=== PATIENT | male | born 1965 | race Hispanic/Latino ===

== ENCOUNTER 2016-05-16 10:18 | Emergency (ER) | payer SELFPAY ==
--- NOTE | 2016-05-16 15:33 | Emergency Department Report ---
ED Neck Pain/Injury HPI - General Chief Complaint: Extremity Injury, Upper Stated Complaint: PAIN DOWN LEFT SIDE NECK/ARM Time Seen by Provider: 05/16/16 15:32 Source: patient Mode of arrival: Ambulatory Limitations: No Limitations - History of Present Illness Initial Comments: Patient here complaining of that and is radiating down his left arm. He said it started about a week ago. He reports that it comes and goes but worse now. He said he has tingling down his arms to his fingertips. He said he was told that he had a fracture in his neck last year but was told that it was very minimal and will heal on its own. Patient said he took ibuprofen at home but it didn't help. Reports pain is 8 out of 10 and tingly. Denies any recent trauma. Denies any fever or chills or headache. Denies any nausea or vomiting. MD Complaint: neck pain Onset/Timin -: week(s) Place: home Radiation: left upper extremity Severity: moderate Severity scale (0 -10): 5 Quality: tingling Consistency: intermittent Improves With: immobilization Worsens With: movement of neck Context: unknown Associated Symptoms: tingling. denies: headache, fever, numbness, weakness, vertigo, difficulty walking, swollen glands, difficulty swallowing, nausea, vomiting Treatments Prior to Arrival: Ibuprofen - Related Data Previous Rx's Medication Instructions Recorded Last Taken Type hydrOXYzine HCL [Atarax] 25 - 50 mg PO Q8HR PRN #30 tablet 05/03/14 05/11/14 Rx predniSONE [Deltasone] 40 mg PO QDAY 5 Days 05/03/14 05/11/14 Rx Acetaminophen/Codeine 1 tab PO Q6H PRN #14 tab 05/11/14 Unknown Rx [Acetaminophen-Codeine #3 TAB] methylPREDNISolone [Medrol Dose 4 mg PO DAILY 6 Days 05/11/14 Unknown Rx Russ] traMADol [Ultram] 50 mg PO Q6HR PRN #20 tablet 05/16/16 Unknown Rx Allergies Allergy/AdvReac Type Severity Reaction Status Date / Time No Known Allergies Allergy Verified 05/10/14 23:59 ED Review of Systems ROS: Stated complaint: PAIN DOWN LEFT SIDE NECK/ARM Other details as noted in HPI Comment: All other systems reviewed and negative Constitutional: denies: chills, fever Eyes: denies: eye pain ENT: denies: throat pain, congestion Respiratory: no symptoms reported Cardiovascular: denies: chest pain, palpitations, edema, syncope Gastrointestinal: denies: abdominal pain, nausea, vomiting, diarrhea Musculoskeletal: arthralgia. denies: back pain Skin: denies: rash Neurological: paresthesias. denies: headache, numbness, abnormal gait, vertigo ED Past Medical Hx - Past Medical History Previous Medical History?: No Hx Hypertension: No Hx CVA: No Hx Heart Attack/AMI: No - Surgical History Past Surgical History?: Yes Hx Cholecystectomy: Yes Additional Surgical History: osteomyelitis in toes on r foot in 07/2012 - Family History Family history: no significant - Social History Smoking Status: Current Every Day Smoker Substance Use Type: None - Medications Home Medications: Home Medications Medication Instructions Recorded Confirmed Last Taken Type hydrOXYzine HCL [Atarax] 25 - 50 mg PO Q8HR PRN #30 tablet 05/03/14 05/11/1410/16 Rx predniSONE [Deltasone] 40 mg PO QDAY 5 Days 05/03/14 05/11/14 05/11/14 Rx Acetaminophen/Codeine 1 tab PO Q6H PRN #14 tab 05/11/14 Unknown Rx [Acetaminophen-Codeine #3 TAB] methylPREDNISolone [Medrol Dose 4 mg PO DAILY 6 Days 05/11/14 Unknown Rx Russ] traMADol [Ultram] 50 mg PO Q6HR PRN #20 tablet 05/16/16 Unknown Rx ED Physical Exam - General Limitations: No Limitations General appearance: alert, in no apparent distress - Head Head exam: Present: atraumatic, normocephalic, normal inspection - Eye Eye exam: Present: normal appearance, PERRL, EOMI. Absent: periorbital swelling , periorbital tenderness Pupils: Present: normal accommodation - ENT ENT exam: Present: normal exam, normal orophraynx, mucous membranes moist, TM's normal bilaterally, normal external ear exam - Neck Neck exam: Present: normal inspection, full ROM. Absent: tenderness, meningismus, lymphadenopathy - Expanded Neck Exam Expanded Neck exam: Absent: tenderness, midline deformity, anterior neck swelling, tracheal deviation - Respiratory Respiratory exam: Present: normal lung sounds bilaterally. Absent: respiratory distress, chest wall tenderness - Cardiovascular Cardiovascular Exam: Present: regular rate, normal rhythm, normal heart sounds - GI/Abdominal GI/Abdominal exam: Present: soft, normal bowel sounds. Absent: distended, tenderness, guarding, rebound, rigid - Extremities Exam Extremities exam: Present: normal inspection, full ROM, normal capillary refill. Absent: tenderness, pedal edema, joint swelling, calf tenderness - Back Exam Back exam: Present: normal inspection, full ROM. Absent: tenderness, CVA tenderness (R), CVA tenderness (L), muscle spasm, paraspinal tenderness, vertebral tenderness, rash noted - Neurological Exam Neurological exam: Present: alert, oriented X3, normal gait, reflexes normal. Absent: motor sensory deficit - Expanded Neurological Exam Expanded Neurological exam: Absent: innattentive, memory loss-remote event, memory loss- recent event, ataxia, receptive aphasia, expressive aphasia, total aphasia, tremor, protecting the airway Patient oriented to: Present: person, place, time Speech: Present: fluid speech Cranial nerves: EOM's Intact: Normal, Gag Reflex: Normal, Facial Sensation: Normal Cerebellar function: Romberg: Normal Upper motor neuron: Pronator Drift: Normal, Sensory Extinction: Normal Sensory exam: Upper Extremity Light Touch: Normal, Upper Extremity Temperature: Normal, UE 2 Point Discrimination: Normal, Lower Extremity Light Touch: Normal, Lower Extremity Temperature: Normal, LE 2 Point Discrimination: Normal Motor strength exam: RUE: 5, LUE: 5, RLE: 5, LLE: 5 DTR: bicep (R): 2+, bicep (L): 2+, tricep (R): 2+, tricep (L): 2+, knee (R): 2+ , knee (L): 2+, ankle (R): 2+, ankle (L): 2+ Best Eye Response ([place]): (4) open spontaneously Best Motor Response ([place]): (6) obeys commands Best Verbal Response ([place]): (5) oriented Peggy Total: 15 - Psychiatric Psychiatric exam: Present: normal affect, normal mood - Skin Skin exam: Present: warm, dry, intact, normal color. Absent: rash ED Course Vital Signs 05/16/16 05/16/16 05/16/16 10:47 16:01 16:31 Temperature 97.9 F Pulse Rate 84 Respiratory 16 16 16 Rate Blood Pressure 125/88 Blood Pressure [Left] O2 Sat by Pulse 100 Oximetry 05/16/16 17:23 Temperature Pulse Rate 82 Respiratory 16 Rate Blood Pressure Blood Pressure 121/80 [Left] O2 Sat by Pulse 100 Oximetry - Reevaluation(s) Reevaluation #1: 05/16/16 23:00 Patient given Toradol 30 mg IM and Decadron 10 mg IM and emergency room. He reports relief of headache 05/17/16 23:54 ED Medical Decision Making - EKG Data -: EKG Interpreted by In EKG shows normal: sinus rhythm - EKG Data Interpretation: no acute changes - Radiology Data Radiology results: report reviewed CT cervical spine revealed spondylosis without any fracture or subluxation - Medical Decision Making ED course:Pt presented to emergency room with neck pain radiating down to his left arm. Reports tingling feeling to his left arm and fingers. CT scan of C- spine revealed spondylosis and this was discussed with patient. She was given Decadron 10 mg and Toradol 30 mg IM with relief of pain. Patient discharged home with prescription for tramadol and to follow-up with orthopedic doctor if he continues to have neck pain. Critical care attestation.: If time is entered above; I have spent that time in minutes in the direct care of this critically ill patient, excluding procedure time. ED Disposition Clinical Impression: Spondylolysis of cervical region, Cervical radiculopathy Disposition: DISCHARGED TO HOME OR SELFCARE Is pt being admited?: No Does the pt Need Aspirin: No Condition: Stable Instructions: Osteoarthritis (ED), Cervical Radiculopathy (ED) Prescriptions: traMADol [Ultram] 50 mg PO Q6HR PRN #20 tablet PRN Reason: Pain Referrals: PRIMARY CARE, [Primary Care Provider] - 3-5 Days OLEG JONES MD [Staff Physician] - 3-5 Days Forms: Accompanied Note, Work/School Release Form(ED)
[2016-05-16] MEDS ORDERED: TORADOL IM ONE (15:50)
[2016-05-16] MEDS ORDERED: DECADRON IM STA (15:51)
--- NOTE | 2016-05-16 16:51 | Cat Scan Report ---
FINAL REPORT EXAM: CT CERVICAL SPINE WO CON HISTORY: neck pain with radiculopathy TECHNIQUE: CT cervical spine with reconstructions PRIORS: None. FINDINGS: Vertebral bodies demonstrate normal height and alignment. The disk spaces are within normal limits. Prominent anterior and lateral osteophytes noted at C2-C3 and C5-C6 through C7-T1 the facet joints demonstrate normal alignment. The spinous processes are intact. Craniocervical junction is unremarkable. C1 and C2 are intact. IMPRESSION: Spondylosis as noted above No acute traumatic abnormality seen.
[2016-05-16 17:24] VITALS: BP 121/80
== END 2016-05-16 17:23 | disposition home or self-care (01) ==
LOC: ED 10:18
DX: M43.02 Spondylolysis, cervical region (principal); M54.12 Radiculopathy, cervical region; F17.200 Nicotine dependence, unspecified, uncomplicated; Z90.49 Acquired absence of other specified parts of digestive tract
CPT/HCPCS: 72125; 93005; 93010; 96372; 99283; J1100; J1885

== ENCOUNTER 2016-06-24 08:04 | Emergency (ER) | payer SELFPAY ==
[2016-06-24 08:41] LABS: Eosinophils % (Auto) 4.5 % (0.0-4.3); Hematocrit 46.8 % (35.5-45.6); Hemoglobin 15.6 gm/dl (11.8-15.2); Mean Corpuscular HGB Conc 33 % (32-34); Mean Corpuscular Hemoglobin 32 pg (28-32); Mean Corpuscular Volume 95 fl (84-94); Platelet Count 243 K/mm3 (140-440); Red Blood Count 4.92 M/mm3 (3.65-5.03); Red Cell Distribution Width 13.4 % (13.2-15.2); White Blood Count 10.2 K/mm3 (4.5-11.0)
[2016-06-24 09:09] LABS: Alanine Aminotransferase 20 units/L (7-56); Albumin 3.8 g/dL (3.9-5); Albumin/Globulin Ratio 1.2 %; Alkaline Phosphatase 83 units/L (35-129); Anion Gap 17 mmol/L; BUN/Creatinine Ratio 15.71; Bilirubin,Total 0.6 mg/dL (0.1-1.2); Blood Urea Nitrogen 11 mg/dL (9-20); Calcium 8.6 mg/dL (8.4-10.2); Carbon Dioxide 23 mmol/L (22-30); Chloride 102.7 mmol/L (98-107); Glucose 186 mg/dL (75-100); Potassium 4.1 mmol/L (3.6-5.0); Sodium 139 mmol/L (137-145)
[2016-06-24 09:14] LABS: Bilirubin,Direct < 0.2 mg/dL (0-0.2)
[2016-06-24 10:39] LABS: Lipase 23 units/L (13-60)
[2016-06-24 11:26] LABS: Bilirubin,Urine NEG (Negative); Blood,Urine SM (Negative); Ketones,Urine NEG (Negative); Leukocyte Esterase,Urine NEG (Negative); Mucus,Urine FEW /HPF; Nitrite,Urine NEG (Negative); Protein,Urine <15 mg/dL mg/dL (Negative); Urobilinogen,Urine < 2.0 mg/dL (<2.0); WBC,Urine < 1.0 /HPF (0.0-6.0)
[2016-06-24] MEDS ORDERED: ZOFRAN IV ONE (17:39)
[2016-06-24] MEDS ORDERED: NORMODYNE IV ONE (17:39)
--- NOTE | 2016-06-24 17:46 | Emergency Department Report ---
HPI - General Chief Complaint: Abdominal Pain Time Seen by Provider: 06/24/16 17:23 - HPI HPI: This is a 51-year-old male who presents to the emergency Department, after being dropped off by a coworker, with complaint of right upper quadrant and right flank abdominal pain. This is associated with some nausea and vomiting and diarrhea. The patient also has some other generalized body aches. He has not checked his temperature but complains of a subjective fever. The patient says that he had undiagnosed flu at the beginning of this week and used [id number] medications and eventually says he felt like he was over it. However this morning he was picked up for work and the symptoms all returned, and on top of that he began having the flank and abdominal pain. He is tried some Metamucil and ibuprofen without much relief. No recent travel or sick contacts at home. Patient denies any past medical history. He is not on any prescription medications on a daily basis. ED Past Medical Hx - Past Medical History Previous Medical History?: No Hx Hypertension: No Hx CVA: No Hx Heart Attack/AMI: No - Surgical History Past Surgical History?: Yes Hx Cholecystectomy: Yes Additional Surgical History: osteomyelitis in toes on r foot in 07/2012 - Social History Smoking Status: Current Every Day Smoker Substance Use Type: None - Medications Home Medications: Home Medications Medication Instructions Recorded Confirmed Last Taken Type hydrOXYzine HCL [Atarax] 25 - 50 mg PO Q8HR PRN #30 tablet 05/03/14 05/11/1410/16 Rx predniSONE [Deltasone] 40 mg PO QDAY 5 Days 05/03/14 05/11/14 05/11/14 Rx Acetaminophen/Codeine 1 tab PO Q6H PRN #14 tab 05/11/14 Unknown Rx [Acetaminophen-Codeine #3 TAB] methylPREDNISolone [Medrol Dose 4 mg PO DAILY 6 Days 05/11/14 Unknown Rx Russ] traMADol [Ultram] 50 mg PO Q6HR PRN #20 tablet 05/16/16 Unknown Rx Ibuprofen [Motrin 800 MG tab] 800 mg PO Q8HR PRN #20 tablet 06/24/16 Unknown Rx Ondansetron [Zofran Odt] 4 mg PO Q8HR PRN #10 tab.rapdis 06/24/16 Unknown Rx ED Review of Systems ROS: Stated complaint: RT SIDE PAIN/COLD SX Other details as noted in HPI Comment: All other systems reviewed and negative Constitutional: denies: chills, fever Eyes: denies: eye pain, eye discharge, vision change ENT: denies: ear pain, throat pain Respiratory: denies: cough, shortness of breath, wheezing Cardiovascular: denies: chest pain, palpitations Gastrointestinal: abdominal pain, nausea, vomiting, diarrhea Genitourinary: denies: urgency, dysuria Musculoskeletal: myalgia. denies: joint swelling Skin: denies: rash, lesions Neurological: denies: headache, weakness, paresthesias Physical Exam - Physical Exam Vital Signs: Vital Signs 06/24/16 08:11 Temperature 97.7 F Pulse Rate 96 H Respiratory 16 Rate Blood Pressure 175/116 O2 Sat by Pulse 100 Oximetry Physical Exam: GENERAL: The patient is well-developed well-nourished. HEENT: Normocephalic. Atraumatic. Extraocular motions are intact. Patient has moist mucous membranes. Pupils equal reactive to light bilaterally. NECK: Supple. Trachea is midline. CHEST/LUNGS: Clear to auscultation. There is no respiratory distress noted. HEART/CARDIOVASCULAR: Regular. There is no tachycardia. There is no gallop rub or murmur. ABDOMEN: Abdomen is soft. Mild tenderness to palpation to the right upper quadrant. No guarding or rebound tenderness. Patient has normal bowel sounds. There is no abdominal distention. SKIN: There is no rash. There is no edema. There is no diaphoresis. NEURO: The patient is awake, alert, and oriented. The patient is cooperative. The patient has no focal neurologic deficits. The patient has normal speech. MUSCULOSKELETAL: There is no tenderness or deformity. There is no limitation range of motion. There is no evidence of acute injury. ED Course Vital Signs 06/24/16 08:11 Temperature 97.7 F Pulse Rate 96 H Respiratory 16 Rate Blood Pressure 175/116 O2 Sat by Pulse 100 Oximetry ED Medical Decision Making - Lab Data Result diagrams: 06/24/16 08:30 06/24/16 08:30 - Radiology Data Radiology results: report reviewed, image reviewed interpreted by me: Abdominal x-ray shows nonspecific bowel gas. There is some mild dilation but no obvious or definitive signs of obstruction. Abdominal utlrasounds does not show any acute process and is a normal examination. CT of the abdomen and pelvis with IV contrast shows a nonspecific bowel gas pattern with a few dilated loops of small bowel the left upper quadrant but no strong evidence for bowel suction. Question mild focal ileus. Mild distal left colonic and sigmoid diverticulosis without diverticulitis. - Medical Decision Making 51-year-old male presents the emergency department with complaint of right upper quadrant abdominal pain. Patient's vital signs were stable. His ED course. He presented with some hypertension but it came down without any antihypertensives. Patient was given some pain control however. Patient's labs are unremarkable and do not show any infection in the blood or urine, electrolyte abnormalities, renal insufficiency and the patient has normal belly labs including LFTs, bilirubin and lipase. Patient had a abdominal x-ray that showed a abnormal gas pattern with some mild dilation so a CT of the abdomen and pelvis was ordered. First patient had abdominal ultrasound that was an unremarkable examination. The CT that resulted as a possible left sided focal ileus but no signs of bowel obstruction. Patient was feeling improved so he was safe for discharge home. We discussed follow-up with primary care and gastroenterology. He will return to the ER with any worsening of symptoms or any acute distress. - Differential Diagnosis ileus, bowel obstruction, colitis, pancreatitis, food poisoning Critical Care Time: No Critical care attestation.: If time is entered above; I have spent that time in minutes in the direct care of this critically ill patient, excluding procedure time. ED Disposition Clinical Impression: Ileus Abdominal pain Qualifiers: Abdominal location: right upper quadrant Qualified Code(s): R10.11 - Right upper quadrant pain Disposition: DISCHARGED TO HOME OR SELFCARE Is pt being admited?: No Condition: Stable Instructions: Abdominal Pain (ED), Ileus (ED) Additional Instructions: Please follow-up with a primary care doctor and digital media director. Return to the emergency department with any worsening of your symptoms or any acute distress. Increase your oral rehydration. Prescriptions: Ibuprofen [Motrin 800 MG tab] 800 mg PO Q8HR PRN #20 tablet PRN Reason: Pain Ondansetron [Zofran Odt] 4 mg PO Q8HR PRN #10 tab.rapdis PRN Reason: Nausea Referrals: PRIMARY MD BREANNE [Primary Care Provider] - 3-5 Days OLIVIER BLOOM MD [Staff Physician] - 3-5 Days POWER CABRERA MD [Staff Physician] - 3-5 Days Forms: Work/School Release Form(ED)
[2016-06-24] MEDS ORDERED: MORPHINE IV ONE ×2 (18:43→21:50)
[2016-06-24 19:46] VITALS: BP 134/74
--- NOTE | 2016-06-24 20:09 | Ultrasound Report ---
FINAL REPORT EXAM: US ABDOMEN COMPLETE HISTORY: abd pain TECHNIQUE: Real-time sonography was performed of the abdomen. Images are submitted for interpretation. PRIORS: None. FINDINGS: The liver has a normal homogeneous echotexture without focal lesions. The gallbladder is absent. There is no evidence of biliary dilatation, the common bile duct measures 4 mm. The pancreas is obscured by gas. The visualized segments of the abdominal aorta and inferior vena cava appear normal. The spleen appears normal, measuring 10.4 cm in length. The kidneys appear normal in size, shape and echogenicity with the right kidney measuring 12.0 x 6.5 x 5.2 cm and the left measuring 11.9 x 5.9 x 6.9 cm. IMPRESSION: Status post cholecystectomy. Normal abdominal ultrasound.
[2016-06-24] MEDS ORDERED: NACL ONE (20:23)
[2016-06-24] MEDS ORDERED: MORPHINE ONE (21:30)
--- NOTE | 2016-06-24 22:07 | Cat Scan Report ---
FINAL REPORT EXAM: CT ABDOMEN PELVIS W CON HISTORY: Abd pain TECHNIQUE: Dynamic helical l CT scan through the abdomen and pelvis during and again after bolus injection of iodinated contrast. Images are reconstructed in the sagittal and coronal planes. Oral contrast was not given. 100 cc of Omnipaque 300 used for the IV contrast agent. PRIORS: None. FINDINGS: The lung bases are clear. The liver, pancreas, spleen and adrenal glands appear normal. There are surgical clips in the gallbladder fossa. The kidneys appear normal. The pelvic organs appear grossly normal. The stomach appears grossly within normal limits. There are few dilated loops of small bowel in the left upper quadrant with air-fluid levels. Loops are dilated up to 2.8 cm. Otherwise, the small bowel appears normal. A normal-appearing appendix is identified. There is mild distal left colonic and sigmoid diverticulosis without evidence of acute diverticulitis. The abdominal aorta has a normal diameter. The bones are normally mineralized. There is multilevel degenerative disc and facet disease of the lumbar spine. There bilateral chronic sacroiliitis. There is lower thoracic spondylosis IMPRESSION: 1. Nonspecific bowel gas pattern with a few dilated loops of small bowel in the left upper quadrant but no strong evidence for bowel obstruction. Question mild focal ileus. 2. Mild distal left colonic and sigmoid diverticulosis without evidence of acute diverticulitis 3. Chronic degenerative changes of the spine and SI joints
--- NOTE | 2016-06-25 11:34 | XRay Report ---
Supine upright views of the abdomen: There is gas scattered throughout multiple small and large bowel loops with no obvious distention. In the upright position there is some air fluid levels in nondistended ascending loops of colon. No free air noted. No soft tissue mass. No abnormal soft tissue calcification. Cholecystectomy clips present. Impression: Nonspecific bowel pattern that may represent a minimal ileus.
== END 2016-06-24 23:55 | disposition home or self-care (01) ==
LOC: ED 08:04
DX: K56.7 Ileus, unspecified (principal); F17.200 Nicotine dependence, unspecified, uncomplicated; Z90.49 Acquired absence of other specified parts of digestive tract
CPT/HCPCS: 36415; 74020; 74177; 76700; 80053; 80074; 81001; 83690; 85025; 96374; 96375; 96376; 99285; J2270; J2405; Q9967

== ENCOUNTER 2016-09-30 20:43 | Emergency (ER) | payer SELFPAY ==
[2016-09-30] MEDS ORDERED: BABY ASPIRIN PO ONE (21:04)
[2016-09-30 21:21] LABS: Basophils % (Auto) 1.2 % (0.0-1.8); Eosinophils % (Auto) 4.1 % (0.0-4.3); Hematocrit 44.9 % (35.5-45.6); Hemoglobin 15.3 gm/dl (11.8-15.2); Mean Corpuscular HGB Conc 34 % (32-34); Mean Corpuscular Hemoglobin 32 pg (28-32); Mean Corpuscular Volume 95 fl (84-94); Platelet Count 195 K/mm3 (140-440); Red Blood Count 4.71 M/mm3 (3.65-5.03); Red Cell Distribution Width 13.2 % (13.2-15.2); White Blood Count 9.2 K/mm3 (4.5-11.0)
[2016-09-30 21:35] LABS: Anion Gap 18 mmol/L; BUN/Creatinine Ratio 24.28; Blood Urea Nitrogen 17 mg/dL (9-20); Calcium 8.9 mg/dL (8.4-10.2); Carbon Dioxide 22 mmol/L (22-30); Glucose 112 mg/dL (75-100); Potassium 3.7 mmol/L (3.6-5.0); Sodium 137 mmol/L (137-145)
[2016-10-01] MEDS ORDERED: ASPIRIN ONE (01:23)
[2016-10-01] MEDS ORDERED: NITRO-BID 2% TP ONE ×2 (01:23→02:04)
[2016-10-01] MEDS ORDERED: NITROSTAT SL ONE (01:26)
[2016-10-01] MEDS: NITROSTAT SL PRN ×3 (01:30→01:50)
[2016-10-01] MEDS ORDERED: NACL 0.9% 1000 ML 1,000 ML IV ONE (01:39)
--- NOTE | 2016-10-01 01:42 | Emergency Department Report ---
ED Chest Pain HPI - General Chief Complaint: Chest Pain Stated Complaint: CHEST PAIN Time Seen by Provider: 10/01/16 01:38 Source: patient Mode of arrival: Ambulatory Limitations: No Limitations - History of Present Illness Initial Comments: Pt is a 51 yr old male with PMhx of osteomyelitis and cholecystectomy who presents with chest pain. Pt reports he was riding in a car in the late afternoon when he started to have central chest pressure described as squeezing with paresthesias and numbness of the R arm and hand. Pt reports no other history of chest pain, no history of stress test or cardiac cath. Otherwise no fevers, chills, WERNER, dizziness, diaphoresis, jaw pain, syncope, SOB, abd pain, falls, travel, or sick contacts. Pt is a 1/2 ppd smoker. no family history of CAD at an early age. Severity scale (0 -10): 8 - Related Data Previous Rx's Medication Instructions Recorded Last Taken Type hydrOXYzine HCL [Atarax] 25 - 50 mg PO Q8HR PRN #30 tablet 05/03/14 05/11/14 Rx predniSONE [Deltasone] 40 mg PO QDAY 5 Days 05/03/14 05/11/14 Rx Acetaminophen/Codeine [Tylenol 1 tab PO Q6H PRN #14 tab 05/11/14 Unknown Rx /Codeine # 3 tab] methylPREDNISolone [Medrol Dose 4 mg PO DAILY 6 Days 05/11/14 Unknown Rx Russ] traMADol [Ultram] 50 mg PO Q6HR PRN #20 tablet 05/16/16 Unknown Rx Ibuprofen [Motrin 800 MG tab] 800 mg PO Q8HR PRN #20 tablet 06/24/16 Unknown Rx Ondansetron [Zofran Odt] 4 mg PO Q8HR PRN #10 tab.rapdis 06/24/16 Unknown Rx Allergies Allergy/AdvReac Type Severity Reaction Status Date / Time No Known Allergies Allergy Verified 05/10/14 23:59 Heart Score - HEART Score History: Moderately suspicious EKG: Normal Age: 45-65 Risk factors: 1-2 risk factors Troponin: < normal limit HEART Score: 3 ED Review of Systems ROS: Stated complaint: CHEST PAIN Other details as noted in HPI Comment: All other systems reviewed and negative ED Past Medical Hx - Past Medical History Previous Medical History?: No Hx Hypertension: No Hx CVA: No Hx Heart Attack/AMI: No - Surgical History Hx Cholecystectomy: Yes Additional Surgical History: osteomyelitis in toes on r foot in 07/2012 - Social History Smoking Status: Current Every Day Smoker Substance Use Type: None - Medications Home Medications: Home Medications Medication Instructions Recorded Confirmed Last Taken Type hydrOXYzine HCL [Atarax] 25 - 50 mg PO Q8HR PRN #30 tablet 05/03/14 05/11/1410/16 Rx predniSONE [Deltasone] 40 mg PO QDAY 5 Days 05/03/14 05/11/14 05/11/14 Rx Acetaminophen/Codeine [Tylenol 1 tab PO Q6H PRN #14 tab 05/11/14 Unknown Rx /Codeine # 3 tab] methylPREDNISolone [Medrol Dose 4 mg PO DAILY 6 Days 05/11/14 Unknown Rx Russ] traMADol [Ultram] 50 mg PO Q6HR PRN #20 tablet 05/16/16 Unknown Rx Ibuprofen [Motrin 800 MG tab] 800 mg PO Q8HR PRN #20 tablet 06/24/16 Unknown Rx Ondansetron [Zofran Odt] 4 mg PO Q8HR PRN #10 tab.rapdis 06/24/16 Unknown Rx ED Physical Exam - General Limitations: No Limitations General appearance: alert, in no apparent distress - Head Head exam: Present: atraumatic, normocephalic - Eye Eye exam: Present: normal appearance - ENT ENT exam: Present: mucous membranes moist - Neck Neck exam: Present: normal inspection - Respiratory Respiratory exam: Present: normal lung sounds bilaterally. Absent: respiratory distress - Cardiovascular Cardiovascular Exam: Present: regular rate, normal rhythm, normal heart sounds. Absent: bradycardia, tachycardia, irregular rhythm, systolic murmur, diastolic murmur, rubs, gallop - GI/Abdominal GI/Abdominal exam: Present: soft, normal bowel sounds - Rectal Rectal exam: Present: deferred - Extremities Exam Extremities exam: Present: normal inspection - Back Exam Back exam: Present: normal inspection - Neurological Exam Neurological exam: Present: alert, oriented X3 - Psychiatric Psychiatric exam: Present: normal affect, normal mood - Skin Skin exam: Present: warm, dry, intact, normal color. Absent: rash ED Course Vital Signs 09/30/16 10/01/16 10/01/16 20:54 00:46 01:00 Temperature 98.2 F Pulse Rate 94 H 62 72 Respiratory 20 14 24 Rate Blood Pressure 170/91 141/79 Blood Pressure 170/91 [Left] O2 Sat by Pulse 96 95 96 Oximetry 10/01/16 10/01/16 10/01/16 01:30 01:35 01:55 Temperature Pulse Rate 81 79 73 Respiratory 20 18 Rate Blood Pressure 139/98 139/78 Blood Pressure 141/79 138/84 [Left] O2 Sat by Pulse 94 99 Oximetry 10/01/16 10/01/16 10/01/16 02:00 02:30 03:00 Temperature Pulse Rate 63 64 Respiratory 12 18 12 Rate Blood Pressure 139/84 139/84 139/84 Blood Pressure [Left] O2 Sat by Pulse 95 95 94 Oximetry 10/01/16 03:30 Temperature Pulse Rate Respiratory 14 Rate Blood Pressure 139/84 Blood Pressure [Left] O2 Sat by Pulse 97 Oximetry MINO score - Mino Score Age > 65: (0) No Aspirin use within the Past 7 Days: (0) No 3 or more CAD Risk Factors: (0) No 2 or more Angina events in past 24 hrs: (1) Yes Known CAD with more than 50% Stenosis: (0) No Elevated Cardiac Markers: (0) No ST Deviation Greater than 0.5mm: (0) No MINO Score: 1 ED Medical Decision Making - Lab Data Result diagrams: 09/30/16 21:06 09/30/16 21:06 - EKG Data -: EKG Interpreted by Me - EKG Data 10/01/16 01:39 EKG 2041, NSR at 93 bpm, QTc: 412ms, normal axis, no LVH, no ST changes, no STEMI - Radiology Data Radiology results: report reviewed, image reviewed CXR: no acute cardiopulmonary findings as visualized by me - Medical Decision Making Pt re-ealuated at 0409: Pt reports significant improvement and his CP has resolved. Pt has had negative troponins x 2 and no other abnormalities noted Pt instructed to return to the ED if his CP returns, otherwise follow up with PMD in1-2 days. Critical care attestation.: If time is entered above; I have spent that time in minutes in the direct care of this critically ill patient, excluding procedure time. ED Disposition Clinical Impression: Chest wall pain Disposition: DC- TO HOME OR SELFCARE Is pt being admited?: No Condition: Stable Instructions: Chest Pain (ED) Additional Instructions: PLEASE FOLLOW UP WITH YOUR PMD IN 1-2 DAYS IF YOU CHEST PAIN RETURNS PLEASE GO TO THE CLOSEST ER Referrals: PRIMARY CARE,MD [Primary Care Provider] - 3-5 Days
[2016-10-01] MEDS ORDERED: TYLENOL PO ONE (02:04)
[2016-10-01 02:17] VITALS: BP 139/84
--- NOTE | 2016-10-01 09:13 | XRay Report ---
Chest 2 views: Compared to 09/03/14. History: Chest pain. Findings: Normal cardiomediastinal silhouette. Trachea is midline. No consolidation, pneumothorax or pleural effusion. Impression: No acute cardiopulmonary findings.
== END 2016-10-01 04:15 | disposition home or self-care (01) ==
LOC: ED 20:43
DX: R07.89 Other chest pain (principal); F17.200 Nicotine dependence, unspecified, uncomplicated
CPT/HCPCS: 36415; 71020; 80048; 84484; 85025; 85379; 93005; 93010; 96360; 99285; J7030

== ENCOUNTER 2016-10-14 04:02 | Emergency (ER) | payer SELFPAY ==
[2016-10-14 04:13] VITALS: BP 136/86
[2016-10-14 04:38] LABS: Basophils % (Auto) 1.1 % (0.0-1.8); Eosinophils % (Auto) 5.3 % (0.0-4.3); Hematocrit 50.6 % (35.5-45.6); Mean Corpuscular HGB Conc 34 % (32-34); Mean Corpuscular Hemoglobin 32 pg (28-32); Mean Corpuscular Volume 94 fl (84-94); Platelet Count 257 K/mm3 (140-440); Red Blood Count 5.39 M/mm3 (3.65-5.03); Red Cell Distribution Width 13.8 % (13.2-15.2); White Blood Count 10.9 K/mm3 (4.5-11.0)
[2016-10-14 04:48] LABS: Anion Gap 21 mmol/L; BUN/Creatinine Ratio 17.14; Blood Urea Nitrogen 12 mg/dL (9-20); Calcium 8.8 mg/dL (8.4-10.2); Carbon Dioxide 22 mmol/L (22-30); Chloride 98.1 mmol/L (98-107); Glucose 97 mg/dL (75-100); Potassium 4.2 mmol/L (3.6-5.0); Sodium 137 mmol/L (137-145)
--- NOTE | 2016-10-14 18:15 | ED Elopement Review ---
ED Pt Elopement review - Results review Lab results: Laboratory Tests 10/14/16 10/14/16 10/14/16 04:16 04:16 04:16 WBC 10.9 RBC 5.39 H Hgb 17.0 H Hct 50.6 H MCV 94 MCH 32 MCHC 34 RDW 13.8 Plt Count 257 Lymph % (Auto) 38.2 H Thayer % (Auto) 7.0 Eos % (Auto) 5.3 H Baso % (Auto) 1.1 Lymph # 4.2 Thayer # 0.8 Eos # 0.6 H Baso # 0.1 Seg Neutrophils % 48.4 Seg Neutrophils # 5.3 Sodium 137 Potassium 4.2 Chloride 98.1 Carbon Dioxide 22 Anion Gap 21 BUN 12 Creatinine 0.7 L Estimated GFR > 60 BUN/Creatinine Ratio 17.14 Glucose 97 Calcium 8.8 Plasma/Serum Alcohol 0.28 H - Call Back decision Pt Call Back Decision: No action required (patient's blood alcohol was elevated but it is now 12 hours later and he will be under legal limit if he has not returned to drinking)
== END 2016-10-14 05:02 | disposition left against medical advice (07) ==
LOC: ED 04:02
DX: K08.89 Other specified disorders of teeth and supporting structures (principal); F10.10 Alcohol abuse, uncomplicated; Z53.21 Procedure and treatment not carried out due to patient leaving prior to being seen by health care provider
CPT/HCPCS: 36415; 80048; 85025; G0480; 80320

== ENCOUNTER 2017-02-09 01:01 | Emergency (ER) | payer SELFPAY ==
[2017-02-09 01:10] VITALS: BP 136/88
--- NOTE | 2017-02-09 09:53 | Emergency Department Report ---
HPI - General Chief Complaint: Earache Time Seen by Provider: 02/09/17 09:51 - HPI HPI: Patient here reports that he was cleated in his right ear out with Q-tips and cotton tip broke off in his ear. He is reporting right ear pain at 4 out of 10. He said he feels like the pain is radiated up the side of his head. Denies any headache. Denies any fever or chills. Denies any cough or runny nose. ED Past Medical Hx - Past Medical History Previous Medical History?: Yes Hx Hypertension: Yes Hx CVA: No Hx Heart Attack/AMI: No - Surgical History Past Surgical History?: Yes Hx Cholecystectomy: Yes Additional Surgical History: osteomyelitis in toes on r foot in 07/2012 - Family History Family history: hypertension - Social History Smoking Status: Current Every Day Smoker Substance Use Type: None, Alcohol - Medications Home Medications: Home Medications Medication Instructions Recorded Confirmed Last Taken Type hydrOXYzine HCL [Atarax] 25 - 50 mg PO Q8HR PRN #30 tablet 05/03/14 05/11/1410/16 Rx predniSONE [Deltasone] 40 mg PO QDAY 5 Days 05/03/14 05/11/14 05/11/14 Rx Acetaminophen/Codeine [Tylenol 1 tab PO Q6H PRN #14 tab 05/11/14 Unknown Rx /Codeine # 3 tab] methylPREDNISolone [Medrol Dose 4 mg PO DAILY 6 Days 05/11/14 Unknown Rx Russ] traMADol [Ultram] 50 mg PO Q6HR PRN #20 tablet 05/16/16 Unknown Rx Ibuprofen [Motrin 800 MG tab] 800 mg PO Q8HR PRN #20 tablet 06/24/16 Unknown Rx Ondansetron [Zofran Odt] 4 mg PO Q8HR PRN #10 tab.rapdis 06/24/16 Unknown Rx ED Review of Systems ROS: Stated complaint: F B IN THE EAR Other details as noted in HPI Comment: All other systems reviewed and negative Constitutional: no symptoms reported Eyes: denies: eye pain, eye discharge, vision change ENT: ear pain, other (foreign body in right ear). denies: throat pain, congestion Respiratory: no symptoms reported Cardiovascular: denies: chest pain, palpitations, edema, syncope Gastrointestinal: denies: abdominal pain, nausea, vomiting Skin: denies: rash Neurological: denies: headache, numbness, paresthesias, confusion, abnormal gait , vertigo Physical Exam - Physical Exam Vital Signs: Vital Signs 02/09/17 01:08 Temperature 98.0 F Pulse Rate 111 H Respiratory 20 Rate Blood Pressure 136/88 O2 Sat by Pulse 95 Oximetry Vital Signs 02/09/17 02/09/17 01:08 12:37 Temperature 98.0 F Pulse Rate 111 H 88 Respiratory 20 Rate Blood Pressure 136/88 O2 Sat by Pulse 95 Oximetry General: This is a 51-year-old male well-nourished well-developed female acute distress. Physical Exam: Head: Normocephalic atraumatic Ears:BIateral TM congested without erythema and loss of bony landmarks. Right EAC with white foreign body noted. . I'm still able to visualize right TM . No mastoid bone s tenderness bilaterally . Mouth: No erythema or exudate. UVULA midline and oral airways patent. No peritonsillar abscess Neck: Nontender to palpate, supple, normal range of motion. No adenopathy. No c- spine tenderness. Nose: Bilateral nasal mucosa normal without any drainage . maxillary and frontal sinuses non-tender to palpate. Eyes: Sclerae and conjunctiva without injection. Bilateral pupils equal and reactive to light. Bilateral lids are normal. Normal accommodation.BEOMI Lungs: Clear to auscultate bilaterally, no rhonchi wheezes or rales. Normal work of breathing and no chest wall tenderness CV: S1, S2. Regular rate and rhythm negative murmur. Capillary refill is less than 3 seconds Skin: Clean dry and intact, no rashes or lesions Psych: Normal mood and behavior ED Course Vital Signs 02/09/17 01:08 Temperature 98.0 F Pulse Rate 111 H Respiratory 20 Rate Blood Pressure 136/88 O2 Sat by Pulse 95 Oximetry Vital Signs 02/09/17 02/09/17 01:08 12:37 Temperature 98.0 F Pulse Rate 111 H 88 Respiratory 20 Rate Blood Pressure 136/88 O2 Sat by Pulse 95 Oximetry - Reevaluation(s) Reevaluation #1: 02/09/17 10:39 Patient here complaining of right ear pain with foreign body in right ear. 0.5 mL of viscous lidocaine placed in the right ear and will attempt to flush and extract foreign body. Patient given Jasper 5/325 2 tablets because he said he was trying to clean his right ear out and it hurts now. - Foreign Body Removal Ear Location: ear canal (R) Foreign Body Suspected: other (cotton) If Insect Suspected: ear canal instilled with Foreign Body Removed: yes (cotton object) Foreign Body Removal Technique: instrumentation Tympanic Membrane Intact: Yes (but congested) Patient Tolerated Procedure: well Complications: none ED Medical Decision Making - Medical Decision Making ED course: Patient here requesting an foreign object removed from his right ear. He is reporting right ear pain after trying to clean his right ear he said cotton applicator broke off into his right ear. Patient right ear visualized and white object noticed. Patient right ear canal instilled with 0.5 mL of 2% viscous lidocaine and after instrumentation used to remove cotton object from right ear. No infection noted to right EAC but bilateral TM mildly congested. Patient received Jasper 5/325 tablet 2 tablets in the emergency room for pain and reports no pain at present. Heart rate is stabilized. Patient stable discharge home with his family to follow up with his primary care physician and if he continues to have ear problems to have his primary care physician refer him to ENT. Critical care attestation.: If time is entered above; I have spent that time in minutes in the direct care of this critically ill patient, excluding procedure time. ED Disposition Clinical Impression: Foreign body in right ear, initial encounter, Otalgia, right ear Disposition: DC-01 TO HOME OR SELFCARE Is pt being admited?: No Does the pt Need Aspirin: No Condition: Stable Instructions: Ear Foreign Body (ED), Earache (ED) Additional Instructions: Please follow up with primary care physician is instructed Referrals: PRIMARY MD BREANNE [Primary Care Provider] - 02/11/17 Forms: Accompanied Note, Work/School Release Form(ED)
[2017-02-09] MEDS ORDERED: NORCO 5/325 PO ONE (10:26)
[2017-02-09] MEDS ORDERED: LIDOCAINE VISCOUS 2% PO ONE (10:27)
== END 2017-02-09 12:55 | disposition home or self-care (01) ==
LOC: ED 01:01
DX: T16.1XXA Foreign body in right ear, initial encounter (principal); I10 Essential (primary) hypertension; F17.210 Nicotine dependence, cigarettes, uncomplicated; X58.XXXA Exposure to other specified factors, initial encounter; Y93.89 Activity, other specified; Y92.89 Other specified places as the place of occurrence of the external cause; Y99.8 Other external cause status
CPT/HCPCS: 99282

== ENCOUNTER 2017-11-15 02:43 | Emergency (ER) | payer SELFPAY ==
[2017-11-15] MEDS ORDERED: NACL 0.9% 1000 ML 1,000 ML IV ONE (02:55)
[2017-11-15 03:39] LABS: Alanine Aminotransferase 28 units/L (7-56); Albumin 4.1 g/dL (3.9-5); BUN/Creatinine Ratio 15; Blood Urea Nitrogen 9 mg/dL (9-20); Calcium 8.3 mg/dL (8.4-10.2); Hemolysis Index 34; Lipase 38 units/L (13-60)
--- NOTE | 2017-11-15 03:44 | Emergency Department Report ---
ED Abdominal Pain HPI - General Chief Complaint: Abdominal Pain Stated Complaint: BACK/ABD PAIN Time Seen by Provider: 11/15/17 03:30 Source: patient, EMS Mode of arrival: Stretcher Limitations: Other - History of Present Illness Initial Comments: Patient is 52 years old male with obvious alcohol intoxication. Patient brought into the ER by EMS after he called complaining of lower abdominal pain. Patient stated that he did drink alcohol to help with his abdominal pain. Patient denied any fever, chest pain or shortness of breath. MD Complaint: abdominal pain -: Gradual Location: diffuse Migration to: no migration Quality: sharp - Related Data Previous Rx's Medication Instructions Recorded Last Taken Type hydrOXYzine HCL [Atarax] 25 - 50 mg PO Q8HR PRN #30 tablet 05/03/14 05/11/14 Rx predniSONE [Deltasone] 40 mg PO QDAY 5 Days tab 05/03/14 05/11/14 Rx Acetaminophen/Codeine [Tylenol 1 tab PO Q6H PRN #14 tab 05/11/14 Unknown Rx /Codeine # 3 tab] methylPREDNISolone [Medrol Dose 4 mg PO DAILY 6 Days tab 05/11/14 Unknown Rx Russ] traMADol [Ultram] 50 mg PO Q6HR PRN #20 tablet 05/16/16 Unknown Rx Ibuprofen [Motrin 800 MG tab] 800 mg PO Q8HR PRN #20 tablet 06/24/16 Unknown Rx Ondansetron [Zofran Odt] 4 mg PO Q8HR PRN #10 tab.rapdis 06/24/16 Unknown Rx Allergies Allergy/AdvReac Type Severity Reaction Status Date / Time No Known Allergies Allergy Verified 05/10/14 23:59 ED Review of Systems ROS: Stated complaint: BACK/ABD PAIN Other details as noted in HPI Comment: All other systems reviewed and negative Constitutional: denies: chills, fever Respiratory: denies: cough, shortness of breath Cardiovascular: denies: chest pain Gastrointestinal: abdominal pain, nausea. denies: vomiting, diarrhea, constipation, hematemesis, melena, hematochezia Neurological: denies: headache, weakness, numbness, paresthesias ED Past Medical Hx - Past Medical History Hx Hypertension: Yes Hx CVA: No Hx Heart Attack/AMI: No - Surgical History Hx Cholecystectomy: Yes Additional Surgical History: osteomyelitis in toes on r foot in 07/2012 - Social History Smoking Status: Current Every Day Smoker Substance Use Type: Alcohol - Medications Home Medications: Home Medications Medication Instructions Recorded Confirmed Last Taken Type hydrOXYzine HCL [Atarax] 25 - 50 mg PO Q8HR PRN #30 tablet 05/03/14 05/11/1410/16 Rx predniSONE [Deltasone] 40 mg PO QDAY 5 Days tab 05/03/14 05/11/14 05/11/14 Rx Acetaminophen/Codeine [Tylenol 1 tab PO Q6H PRN #14 tab 05/11/14 Unknown Rx /Codeine # 3 tab] methylPREDNISolone [Medrol Dose 4 mg PO DAILY 6 Days tab 05/11/14 Unknown Rx Russ] traMADol [Ultram] 50 mg PO Q6HR PRN #20 tablet 05/16/16 Unknown Rx Ibuprofen [Motrin 800 MG tab] 800 mg PO Q8HR PRN #20 tablet 06/24/16 Unknown Rx Ondansetron [Zofran Odt] 4 mg PO Q8HR PRN #10 tab.rapdis 06/24/16 Unknown Rx ED Physical Exam - General Limitations: Other General appearance: alert, in no apparent distress - Head Head exam: Present: atraumatic, normocephalic, normal inspection - ENT ENT exam: Present: normal exam, normal orophraynx, mucous membranes moist - Neck Neck exam: Present: normal inspection, full ROM. Absent: tenderness, meningismus, lymphadenopathy, thyromegaly - Respiratory Respiratory exam: Present: normal lung sounds bilaterally - Cardiovascular Cardiovascular Exam: Present: regular rate, normal rhythm, normal heart sounds - GI/Abdominal GI/Abdominal exam: Present: soft, tenderness (diffuse), normal bowel sounds. Absent: distended, guarding, rebound, rigid, organomegaly, mass, bruit, pulsatile mass, hernia - Extremities Exam Extremities exam: Present: normal inspection, full ROM, normal capillary refill , pedal edema - Neurological Exam Neurological exam: Present: alert, oriented X3, CN II-XII intact, normal gait, reflexes normal - Skin Skin exam: Present: warm, intact, normal color ED Medical Decision Making - Lab Data Result diagrams: 11/15/17 03:13 11/15/17 03:13 - Radiology Data Radiology results: report reviewed Referring Physician: IZZY MARTE Patient Name: AURELIA LI Date of : 1965 Sex: Male Report Date: 2017-11-15 Report Status: Finalized Findings [facility] [address] [place] [address] Cat Scan Report Signed Patient: AURELIA LI III MR#: [id number] : 1965 Acct:[id number] Age/Sex: 52 / M ADM Date: 11/15/17 Loc: ED Attending Dr: Ordering Physician: IZZY MARTE Date of Service: 11/15/17 Procedure(s): CT abdomen pelvis w con Accession Number(s): [id number] cc: IZZY MARTE FINAL REPORT EXAM: CT ABDOMEN PELVIS W CON HISTORY: abdominal pain TECHNIQUE: Routine axial imaging was obtained of the abdomen and pelvis following the intravenous injection of 100 cc of Omnipaque 350. Delayed imaging was obtained through the kidneys ureters and bladder. Sagittal and coronal reconstructions were reviewed. Comparison is made to the study of 06/24/2016. FINDINGS: Images through the lung bases reveal minimal atelectatic changes in the lower lobes. Pleural fluid is not seen. The liver is normal size reveals diminished attenuation compatible hepatic steatosis. The gallbladder has been removed. The biliary tree is not dilated. The adrenal glands and spleen appear normal. The kidneys enhance normally. There is no evidence of hydronephrosis. There is nonspecific reticulation of the mesentery in the mid abdomen extending cephalad around the pancreas. As to whether this is on the basis of pancreatitis or nonspecific omental panniculitis is uncertain. The pancreas otherwise is normal in configuration. The abdominal aorta is normal in caliber. The vascular structures enhance normally. The bowel loops are normal in caliber and course. There is a small umbilical hernia containing omental fat. The appendix appears normal. Free fluid is not seen. In the pelvis there is mild thickening of the bladder wall which is generalized. Bladder wall hypertrophy/cystitis cannot be excluded. The prostate gland appears normal. There are bilateral small inguinal hernias containing omental fat. The skeletal structures reveal multilevel disc degeneration in the lumbar spine. IMPRESSION: Reticulation of the mesentery in the mid abdomen extending cephalad to include the mesentery around the pancreas as described. As to whether the findings on the basis of a non specific omental panniculitis or is related to pancreatitis is uncertain. Correlation with serum lipase and amylase recommended. No evidence of ileus or bowel obstruction. Cholecystectomy. Mild hepatic steatosis. Very mild atelectatic changes in both lung bases. Generalized bladder wall thickening secondary to bladder wall hypertrophy/cystitis. Small umbilical hernia containing omental fat. Normal appendix. Multilevel disc degeneration in the lumbar spine. Transcribed By: RB Dictated By: LOLIS DENIS MD Electronically Authenticated By: LOLIS DENIS MD Signed Date/Time: 11/15/17501 DD/ 1 TD/TT: 11/15/17501 Critical care attestation.: If time is entered above; I have spent that time in minutes in the direct care of this critically ill patient, excluding procedure time. ED Disposition Clinical Impression: Alcohol intoxication, Abdominal pain Disposition: DC-01 TO HOME OR SELFCARE Is pt being admited?: No Condition: Stable Instructions: Alcohol Intoxication (ED), Abdominal Pain (ED) Referrals: PRIMARY CARE, [Primary Care Provider] - 3-5 Days
[2017-11-15 03:46] LABS: Basophils # (Auto) 0.1 K/mm3 (0.0-0.1); Eosinophils # (Auto) 0.4 K/mm3 (0.0-0.4); Eosinophils % (Auto) 4.6 % (0.0-4.3); Hematocrit 45.4 % (35.5-45.6); Lymphocytes # (Auto) 3.2 K/mm3 (1.2-5.4); Lymphocytes % (Auto) 39.9 % (13.4-35.0); Mean Corpuscular HGB Conc 35 % (32-34); Mean Corpuscular Hemoglobin 34 pg (28-32); Mean Corpuscular Volume 97 fl (84-94); Monocytes # (Auto) 0.6 K/mm3 (0.0-0.8); Monocytes % (Auto) 7.7 % (0.0-7.3); Platelet Count 200 K/mm3 (140-440); Red Blood Count 4.67 M/mm3 (3.65-5.03); Red Cell Distribution Width 13.3 % (13.2-15.2)
--- NOTE | 2017-11-15 05:09 | Cat Scan Report ---
FINAL REPORT EXAM: CT ABDOMEN PELVIS W CON HISTORY: abdominal pain TECHNIQUE: Routine axial imaging was obtained of the abdomen and pelvis following the intravenous injection of 100 cc of Omnipaque 350. Delayed imaging was obtained through the kidneys ureters and bladder. Sagittal and coronal reconstructions were reviewed. Comparison is made to the study of 06/24/2016. FINDINGS: Images through the lung bases reveal minimal atelectatic changes in the lower lobes. Pleural fluid is not seen. The liver is normal size reveals diminished attenuation compatible hepatic steatosis. The gallbladder has been removed. The biliary tree is not dilated. The adrenal glands and spleen appear normal. The kidneys enhance normally. There is no evidence of hydronephrosis. There is nonspecific reticulation of the mesentery in the mid abdomen extending cephalad around the pancreas. As to whether this is on the basis of pancreatitis or nonspecific omental panniculitis is uncertain. The pancreas otherwise is normal in configuration. The abdominal aorta is normal in caliber. The vascular structures enhance normally. The bowel loops are normal in caliber and course. There is a small umbilical hernia containing omental fat. The appendix appears normal. Free fluid is not seen. In the pelvis there is mild thickening of the bladder wall which is generalized. Bladder wall hypertrophy/cystitis cannot be excluded. The prostate gland appears normal. There are bilateral small inguinal hernias containing omental fat. The skeletal structures reveal multilevel disc degeneration in the lumbar spine. IMPRESSION: Reticulation of the mesentery in the mid abdomen extending cephalad to include the mesentery around the pancreas as described. As to whether the findings on the basis of a non specific omental panniculitis or is related to pancreatitis is uncertain. Correlation with serum lipase and amylase recommended. No evidence of ileus or bowel obstruction. Cholecystectomy. Mild hepatic steatosis. Very mild atelectatic changes in both lung bases. Generalized bladder wall thickening secondary to bladder wall hypertrophy/cystitis. Small umbilical hernia containing omental fat. Normal appendix. Multilevel disc degeneration in the lumbar spine.
[2017-11-15 05:21] LABS: Bilirubin,Urine NEG (Negative); Blood,Urine SM (Negative); Color,Urine Yellow (Yellow); Mucus,Urine FEW /HPF; Protein,Urine <15 mg/dL mg/dL (Negative); Urobilinogen,Urine < 2.0 mg/dL (<2.0)
[2017-11-15 05:26] LABS: WBC,Urine < 1.0 /HPF (0.0-6.0)
[2017-11-15 05:29] LABS: Amphetamine Screen,Urine PRESUMPTIVE NEGATIVE; Benzodiazepines Screen,Urine PRESUMPTIVE NEGATIVE; Cannabinoid Screen,Urine PRESUMPTIVE NEGATIVE; Cocaine Screen,Urine PRESUMPTIVE NEGATIVE; Methadone Screen,Urine PRESUMPTIVE NEGATIVE; Opiate Screen,Urine PRESUMPTIVE NEGATIVE
[2017-11-15 12:12] VITALS: BP 136/91
== END 2017-11-15 13:24 | disposition home or self-care (01) ==
LOC: ED 02:43
DX: R10.84 Generalized abdominal pain (principal); F10.129 Alcohol abuse with intoxication, unspecified; R11.0 Nausea; I10 Essential (primary) hypertension; F17.200 Nicotine dependence, unspecified, uncomplicated; Z90.89 Acquired absence of other organs; Z79.899 Other long term (current) drug therapy
CPT/HCPCS: 36415; 74177; 80053; 80307; 81001; 83690; 85025; 96360; 96361; 99285; G0480; J7030; Q9967; 80320

== ENCOUNTER 2018-08-26 09:32 | Inpatient (IN) | payer OTHER ==
[2018-08-26 10:10] LABS: Basophils # (Auto) 0.1 K/mm3 (0.0-0.1); Basophils % (Auto) 1.2 % (0.0-1.8); Eosinophils # (Auto) 0.3 K/mm3 (0.0-0.4); Eosinophils % (Auto) 6.3 % (0.0-4.3); Lymphocytes # (Auto) 1.7 K/mm3 (1.2-5.4); Mean Corpuscular HGB Conc 36 % (32-34); Mean Corpuscular Volume 98 fl (84-94); Monocytes # (Auto) 0.5 K/mm3 (0.0-0.8); Monocytes % (Auto) 8.6 % (0.0-7.3); Platelet Count 226 K/mm3 (140-440); Red Blood Count 4.95 M/mm3 (3.65-5.03); Red Cell Distribution Width 13.4 % (13.2-15.2)
--- NOTE | 2018-08-26 10:15 | Emergency Department Report ---
ED Chest Pain HPI - General Chief Complaint: Chest Pain Stated Complaint: CHEST PAIN Time Seen by Provider: 08/26/18 10:00 Source: patient, EMS Mode of arrival: Stretcher Limitations: No Limitations - History of Present Illness Initial Comments: 53-year-old male with no past medical history presents to ED with complaint of chest pain or shortness of breath. Patient reports onset approximately 1.5 hours ago. Patient states he experienced pain as he was getting out of the shower. States pain is substernal, sharp and tight, with associated shortness of breath and dizziness. Denies nausea, vomiting, diaphoresis. Denies radiation of pain. Patient states he takes an aspirin at home prior to calling EMS. Also reports he had a few beers this morning after getting off work at 1 AM. Reports tobacco use. Denies drug use. MD Complaint: chest pain -: hour(s) (1.5) Onset: during rest Pain Location: substernal Pain Radiation: none Severity: moderate Severity scale (0 -10): 7 Quality: tightness, sharp Consistency: constant Improves With: nothing Worsens With: nothing re: denies: nausea, vomting, diaphoresis, dyspnea Treatments Prior to Arrival: aspirin - Related Data Previous Rx's Medication Instructions Recorded Last Taken Type traMADol [Ultram 50 MG tab] 50 mg PO Q6HR PRN #12 tablet 04/01/18 Unknown Rx Allergies Allergy/AdvReac Type Severity Reaction Status Date / Time No Known Allergies Allergy Verified 08/26/18 16:58 Heart Score - HEART Score History: Slightly suspicious EKG: Normal Age: 45-65 Risk factors: 1-2 risk factors Troponin: < normal limit HEART Score: 2 ED Review of Systems ROS: Stated complaint: CHEST PAIN Other details as noted in HPI Comment: All other systems reviewed and negative Constitutional: denies: chills, fever Respiratory: shortness of breath. denies: cough Cardiovascular: chest pain Gastrointestinal: denies: nausea, vomiting Musculoskeletal: other (denies leg pain or swelling) ED Past Medical Hx - Past Medical History Hx Hypertension: Yes Hx CVA: No Hx Heart Attack/AMI: No - Surgical History Hx Cholecystectomy: Yes Additional Surgical History: osteomyelitis in toes on r foot in 07/2012 - Social History Smoking Status: Current Every Day Smoker Substance Use Type: Alcohol - Medications Home Medications: Home Medications Medication Instructions Recorded Confirmed Last Taken Type traMADol [Ultram 50 MG tab] 50 mg PO Q6HR PRN #12 tablet 04/01/18 08/26/18 Unknown Rx ED Physical Exam - General Limitations: No Limitations General appearance: alert, in no apparent distress - Head Head exam: Present: atraumatic, normocephalic - Eye Eye exam: Present: normal appearance - ENT ENT exam: Present: mucous membranes moist - Neck Neck exam: Present: normal inspection - Respiratory Respiratory exam: Present: normal lung sounds bilaterally. Absent: respiratory distress - Cardiovascular Cardiovascular Exam: Present: regular rate, normal rhythm - GI/Abdominal GI/Abdominal exam: Present: soft. Absent: distended, tenderness - Extremities Exam Extremities exam: Present: normal inspection. Absent: pedal edema, calf tenderness - Neurological Exam Neurological exam: Present: alert, oriented X3 - Psychiatric Psychiatric exam: Present: normal affect, normal mood - Skin Skin exam: Present: warm, dry, intact, normal color ED Course Vital Signs 08/26/18 08/26/18 08/26/18 10:00 10:02 10:03 Temperature 97.8 F Pulse Rate 90 93 H Respiratory 18 19 18 Rate Blood Pressure 114/70 Blood Pressure 119/79 [Right] O2 Sat by Pulse 94 96 96 Oximetry 08/26/18 08/26/18 08/26/18 11:30 11:40 11:50 Temperature Pulse Rate 86 87 81 Respiratory 18 18 18 Rate Blood Pressure 104/46 104/46 Blood Pressure 104/46 [Right] O2 Sat by Pulse 94 93 94 Oximetry 08/26/18 08/26/18 08/26/18 12:00 12:10 12:20 Temperature Pulse Rate 98 H 82 85 Respiratory 14 20 19 Rate Blood Pressure 104/46 117/40 117/40 Blood Pressure [Right] O2 Sat by Pulse 94 94 93 Oximetry 08/26/18 08/26/18 08/26/18 12:30 12:40 12:50 Temperature Pulse Rate 84 122 H Respiratory 18 28 H Rate Blood Pressure 117/40 117/40 117/40 Blood Pressure [Right] O2 Sat by Pulse 92 93 94 Oximetry 08/26/18 08/26/18 08/26/18 13:00 13:10 13:20 Temperature Pulse Rate Respiratory Rate Blood Pressure 117/40 104/41 104/41 Blood Pressure [Right] O2 Sat by Pulse 94 90 94 Oximetry 08/26/18 08/26/18 08/26/18 13:30 13:40 13:50 Temperature Pulse Rate Respiratory Rate Blood Pressure 104/41 104/41 104/41 Blood Pressure [Right] O2 Sat by Pulse 95 96 94 Oximetry 08/26/18 08/26/18 08/26/18 14:00 14:10 14:20 Temperature Pulse Rate Respiratory Rate Blood Pressure 117/60 117/60 117/60 Blood Pressure [Right] O2 Sat by Pulse 95 94 95 Oximetry 08/26/18 08/26/18 08/26/18 14:30 14:40 14:50 Temperature Pulse Rate Respiratory Rate Blood Pressure 117/60 117/60 117/60 Blood Pressure [Right] O2 Sat by Pulse 94 92 93 Oximetry 08/26/18 08/26/18 08/26/18 15:00 15:10 15:20 Temperature Pulse Rate Respiratory Rate Blood Pressure 117/60 123/30 123/30 Blood Pressure [Right] O2 Sat by Pulse 94 92 91 Oximetry 08/26/18 08/26/18 08/26/18 15:30 15:40 15:50 Temperature Pulse Rate Respiratory Rate Blood Pressure 123/30 123/30 123/30 Blood Pressure [Right] O2 Sat by Pulse 93 93 95 Oximetry 08/26/18 08/26/18 08/26/18 16:00 16:10 16:22 Temperature Pulse Rate Respiratory Rate Blood Pressure 123/30 110/45 110/45 Blood Pressure [Right] O2 Sat by Pulse 94 94 93 Oximetry - Reevaluation(s) Reevaluation #1: 08/26/18 14:00 EKG normal. Trop negative x 2. Pt now reports burning pain. Suggested possibly from ETOH, but pt states he only had 4 beers at 1 AM. Lipase negative. Will admit MINO score - Mino Score Age > 65: (0) No Aspirin use within the Past 7 Days: (0) No 3 or more CAD Risk Factors: (0) No 2 or more Angina events in past 24 hrs: (1) Yes Known CAD with more than 50% Stenosis: (0) No Elevated Cardiac Markers: (0) No ST Deviation Greater than 0.5mm: (0) No MINO Score: 1 ED Medical Decision Making - Lab Data Result diagrams: 08/27/18 07:09 08/27/18 07:09 - EKG Data -: EKG Interpreted by Me EKG shows normal: sinus rhythm, axis, intervals, QRS complexes, ST-T waves Rate: normal - EKG Data Interpretation: no acute changes - Radiology Data Radiology results: report reviewed, image reviewed - Differential Diagnosis ACS, PE, pancreatitis, gastritis Critical care attestation.: If time is entered above; I have spent that time in minutes in the direct care of this critically ill patient, excluding procedure time. ED Disposition Clinical Impression: Chest pain Qualifiers: Chest pain type: unspecified Qualified Code(s): R07.9 - Chest pain, unspecified Disposition: OP ADMIT IP TO THIS HOSP Is pt being admited?: Yes Condition: Stable Time of Disposition: 14:00
[2018-08-26 10:21] LABS: INR 0.92 (0.87-1.13); Partial Thromboplastin Time 27.7 Sec. (24.2-36.6)
--- NOTE | 2018-08-26 10:21 | XRay Report ---
PROCEDURE: XR CHEST 1V AP TECHNIQUE: Chest, one view HISTORY: Chest Pain COMPARISON: 10/01/2016 FINDINGS: The heart size is normal. There is no pulmonary vascular congestion seen. Mediastinal contours are normal. Lungs are clear. There is no pleural effusion seen. There is no pneumothorax seen. IMPRESSION: No acute abnormality identified. This document is electronically signed by Robina Costello MD., Aug 26 2018 10:19:40 AM ET
[2018-08-26] MEDS ORDERED: MORPHINE IV ONE (10:25)
[2018-08-26 10:26] LABS: Hematocrit 48.6 % (35.5-45.6); Hemoglobin 17.4 gm/dl (11.8-15.2)
[2018-08-26 10:36] LABS: Alanine Aminotransferase 47 units/L (7-56); Albumin 4.4 g/dL (3.9-5); BUN/Creatinine Ratio 16; Blood Urea Nitrogen 13 mg/dL (9-20); Calcium 8.3 mg/dL (8.4-10.2); Hemolysis Index 9
[2018-08-26] MEDS ORDERED: LIDOCAINE VISCOUS 2% PO ONE (13:47)
[2018-08-26] MEDS ORDERED: ALUM-MAG HYDROX-SIMETH 200-200-20MG/5ML PO ONE (13:47)
--- NOTE | 2018-08-26 15:59 | History and Physical Report ---
History of Present Illness Date of examination: 08/26/18 Date of admission: 08/26/18 14:34 Chief complaint: Chest pain since 12 noon History of present illness: 53-year-old male with no significant past medical history comes in for chest pain and shortness of breath since 12 noon. Patient worked for 9 hours yesterday. First 5 hours was in severe heat. Patient slept around 2 AM and got up around 8:30 AM. At around 12 noon patient developed chest pain and shortness of breath. Chest pain associated with some diaphoresis. Pain is about 8 on a scale of 1-10 lasted for about one and half hours. Still has some dull pain which is residual. No radiation. No palpitations. No previous workup for chest pain. Not taking any medications. Past Medical History Hypertension Surgical History Hx Cholecystectomy: Yes Additional Surgical History: osteomyelitis in toes on r foot in 07/2012 Social History Smoking Status: Current Every Day Smoker Substance Use Type: Alcohol Family history No significant family history Review of systems ROS: Stated complaint: CHEST PAIN Other details as noted in HPI Comment: All other systems reviewed and negative Constitutional: denies: chills, fever Respiratory: shortness of breath. denies: cough Cardiovascular: chest pain Gastrointestinal: denies: nausea, vomiting Musculoskeletal: other (denies leg pain or swelling) Medications and Allergies Allergies Allergy/AdvReac Type Severity Reaction Status Date / Time No Known Allergies Allergy Verified 08/26/18 09:37 Home Medications Medication Instructions Recorded Confirmed Last Taken Type traMADol [Ultram 50 MG tab] 50 mg PO Q6HR PRN #12 tablet 04/01/18 08/26/18 Unknown Rx Exam - Constitutional Vitals: Temp Pulse Resp BP Pulse Ox 97.8 F 86 18 104/46 94 08/26/18 10:02 08/26/18 11:30 08/26/18 11:30 08/26/18 11:30 08/26/18 11:30 General appearance: Present: no acute distress, well-nourished - EENT Eyes: Present: PERRL ENT: hearing intact, clear oral mucosa - Neck Neck: Present: supple, normal ROM - Respiratory Respiratory effort: normal Respiratory: bilateral: CTA - Cardiovascular Heart rate: 89 Rhythm: regular Heart Sounds: Present: S1 & S2. Absent: rub, click - Extremities Extremities: no ischemia, pulses intact, pulses symmetrical, No edema Peripheral Pulses: within normal limits - Abdominal General gastrointestinal: Present: soft, non-tender, non-distended, normal bowel sounds Male genitourinary: Present: normal - Rectal Rectal Exam: deferred - Integumentary Integumentary: Present: clear, warm, dry - Musculoskeletal Musculoskeletal: gait normal, strength equal bilaterally - Psychiatric Psychiatric: appropriate mood/affect, intact judgment & insight - Neurologic Neurologic: CNII-XII intact, moves all extremities - Allied Health Allied health notes reviewed: nursing, case management Results - Labs CBC & Chem 7: 08/26/18 Unknown 08/26/18 Unknown Labs: Laboratory Last Values WBC 5.3 K/mm3 (4.5-11.0) 08/26/18 Unknown RBC 4.95 M/mm3 (3.65-5.03) 08/26/18 Unknown Hgb 17.4 gm/dl (11.8-15.2) H 08/26/18 Unknown Hct 48.6 % (35.5-45.6) H 08/26/18 Unknown MCV 98 fl (84-94) H 08/26/18 Unknown MCH 35 pg (28-32) H 08/26/18 Unknown MCHC 36 % (32-34) H 08/26/18 Unknown RDW 13.4 % (13.2-15.2) 08/26/18 Unknown Plt Count 226 K/mm3 (140-440) 08/26/18 Unknown Lymph % (Auto) 33.0 % (13.4-35.0) 08/26/18 Unknown [place] % (Auto) 8.6 % (0.0-7.3) H 08/26/18 Unknown Eos % (Auto) 6.3 % (0.0-4.3) H 08/26/18 Unknown Baso % (Auto) 1.2 % (0.0-1.8) 08/26/18 Unknown Lymph # 1.7 K/mm3 (1.2-5.4) 08/26/18 Unknown [place] # 0.5 K/mm3 (0.0-0.8) 08/26/18 Unknown Eos # 0.3 K/mm3 (0.0-0.4) 08/26/18 Unknown Baso # 0.1 K/mm3 (0.0-0.1) 08/26/18 Unknown Seg Neutrophils % 50.9 % (40.0-70.0) 08/26/18 Unknown Seg Neutrophils # 2.7 K/mm3 (1.8-7.7) 08/26/18 Unknown PT 12.9 Sec. (12.2-14.9) 08/26/18 Unknown INR 0.92 (0.87-1.13) 08/26/18 Unknown APTT 27.7 Sec. (24.2-36.6) 08/26/18 Unknown 158.82 ng/mlDDU (0-234) 08/26/18 Unknown Sodium 141 mmol/L (137-145) 08/26/18 Unknown Potassium 4.0 mmol/L (3.6-5.0) 08/26/18 Unknown Chloride 101.2 mmol/L (98-107) 08/26/18 Unknown Carbon Dioxide 22 mmol/L (22-30) 08/26/18 Unknown 22 mmol/L 08/26/18 Unknown BUN 13 mg/dL (9-20) 08/26/18 Unknown 0.8 mg/dL (0.8-1.5) 08/26/18 Unknown Estimated GFR > 60 ml/min 08/26/18 Unknown 16 % 08/26/18 Unknown Glucose 125 mg/dL (75-100) H 08/26/18 Unknown Calcium 8.3 mg/dL (8.4-10.2) L 08/26/18 Unknown 0.40 mg/dL (0.1-1.2) 08/26/18 Unknown AST 44 units/L (5-40) H 08/26/18 Unknown ALT 47 units/L (7-56) 08/26/18 Unknown 113 units/L (35-129) 08/26/18 Unknown < 0.010 ng/mL (0.00-0.029) 08/26/18 Unknown 7.1 g/dL (6.3-8.2) 08/26/18 Unknown 4.4 g/dL (3.9-5) 08/26/18 Unknown 1.6 % 08/26/18 Unknown 36 units/L (13-60) 08/26/18 Unknown Short CBC 08/26/18 Range/Units Unknown WBC 5.3 (4.5-11.0) K/mm3 Hgb 17.4 H (11.8-15.2) gm/dl Hct 48.6 H (35.5-45.6) % Plt Count 226 (140-440) K/mm3 BMP 08/26/18 Unknown Sodium 141 Potassium 4.0 Chloride 101.2 Carbon Dioxide 22 BUN 13 Creatinine 0.8 Glucose 125 H Calcium 8.3 L Cardiac Enzymes 08/26/18 08/26/18 Range/Units 12:47 Unknown Troponin T < 0.010 < 0.010 (0.00-0.029) ng/mL Liver Function 08/26/18 Range/Units Unknown Total Bilirubin 0.40 (0.1-1.2) mg/dL AST 44 H (5-40) units/L ALT 47 (7-56) units/L Alkaline Phosphatase 113 (35-129) units/L Albumin 4.4 (3.9-5) g/dL - Imaging and Cardiology EKG: report reviewed (sinus rhythm, heart rate of 89/m no acute ST-T wave changes) Chest x-ray: report reviewed (no acute findings) Assessment and Plan Advance Directives: Yes (full code) VTE prophylaxis?: Chemical Plan of care discussed with patient/family: Yes - Patient Problems (1) Chest pain Current Visit: Yes Status: Acute Qualifiers: Chest pain type: unspecified Qualified Code(s): R07.9 - Chest pain, unspecified Plan to address problem: Chest pain rule out SD protocol Serial troponins Stress test in a.m. Stress test is not available on Sundays (2) Polycythemia due to fall in plasma volume Current Visit: Yes Status: Acute Plan to address problem: IV fluids for now Recheck hemoglobin and hematocrit (3) Nicotine dependence Current Visit: Yes Status: Chronic Qualifiers: Nicotine product type: cigarettes Plan to address problem: Patient started on NicoDerm patch Patient counseled about smoking-- 10 minutes (4) Hypocalcemia Current Visit: Yes Status: Acute Plan to address problem: Mild Caltrate twice a day (5) Transaminitis Current Visit: Yes Status: Acute Plan to address problem: Secondary to alcohol Patient consumes beer on a regular basis CIWA protocol if necessary (6) DVT prophylaxis Current Visit: Yes Status: Acute Plan to address problem: On Lovenox and GI prophylaxis
[2018-08-26] MEDS ORDERED: DILAUDID IV PRN (16:25)
[2018-08-26] MEDS ORDERED: TYLENOL PO PRN (16:25)
[2018-08-26] MEDS ORDERED: SODIUM CHLORIDE FLUSH SYRINGE 10 ML IV PRN (16:25)
[2018-08-26] MEDS ORDERED: PERCOCET 5/325 PO PRN (16:25)
[2018-08-26] MEDS ORDERED: ZOFRAN IV PRN (16:25)
[2018-08-26] MEDS: CALTRATE PLUS PO SCH (18:15)
[2018-08-26] MEDS: PEPCID PO SCH (18:15)
[2018-08-26] MEDS: HABITROL TD SCH (18:18)
[2018-08-26] MEDS: NACL 0.9% 1000 ML 1,000 ML IV SCH (18:59)
[2018-08-26] MEDS: SODIUM CHLORIDE FLUSH SYRINGE 10 ML IV SCH (22:13)
[2018-08-26] MEDS: LOVENOX SUB-Q SCH (22:13)
--- NOTE | 2018-08-27 07:34 | Progress Note ---
Assessment and Plan Assessment and plan: Patient is a 53 yo man with a history of hypertension and tobacco dependency who presented with chest pains. Troponin T negative x 2, normal d-dimer, elevated HCT, bg 125, isolated increase AST 44 with normal ALT/AP/TB. Waiting on Stress test on Tuesday Chest pains, atypical: stress test on Tuesday, not done on Sundays here Elevated HCT, due to dehydration: labs pending Tobacco dependency: marriage and family counselor on stopping Obesity, bmi 32.5: marriage and family counselor on weight reduction Isolated AST, very mild and insignificant for workup at this time: monitor outpatient DVT prophylaxis: sq lovenox full code Disposition: stress test tomorrow and if negative d/c home History Interval history: Patient was seen and examined. Follow-up on current diagnosis. No overnight events reported to me. Patient denies any chest pain, shortness breath, nausea/vomiting or severe headaches. Imaging, nursing note, chart, labs and old chart reviewed. Discussed with patient. Hospitalist Physical - Physical exam Narrative exam: Gen: WDWN, NAD, Awake, Alert, Orientated HEENT: NCAT, EOMI, PERRL, OP Clear Neck: supple, no adenopathy, no thyromegaly, no JVD CVS/Heart: RRR, normal S1S2, pulses present bilaterally Chest/Lungs: CTA B, Symmetrical chest expansion, good air entry bilaterally GI/Abdomen: soft, NTND, good bowel sounds, no guarding or rebound /Bladder: no suprapubic tenderness, no CVA or paraspinal tenderness Extermity/Skin: no c/c/e, no obvious rash MSK: FROM x 4 Neuro: CN 2-12 grossly intact, no new focal deficits Psych: calm - Constitutional Vitals: Temp Pulse Resp BP Pulse Ox 98.1 F 58 L 18 155/83 98 08/27/18 05:24 08/27/18 05:24 08/27/18 05:24 08/27/18 05:24 08/27/18 05:24 General appearance: Present: no acute distress, well-nourished Results - Labs CBC & Chem 7: 08/26/18 Unknown 08/26/18 Unknown Labs: Laboratory Last Values WBC 5.3 K/mm3 (4.5-11.0) 08/26/18 Unknown RBC 4.95 M/mm3 (3.65-5.03) 08/26/18 Unknown Hgb 17.4 gm/dl (11.8-15.2) H 08/26/18 Unknown Hct 48.6 % (35.5-45.6) H 08/26/18 Unknown MCV 98 fl (84-94) H 08/26/18 Unknown MCH 35 pg (28-32) H 08/26/18 Unknown MCHC 36 % (32-34) H 08/26/18 Unknown RDW 13.4 % (13.2-15.2) 08/26/18 Unknown Plt Count 226 K/mm3 (140-440) 08/26/18 Unknown Lymph % (Auto) 33.0 % (13.4-35.0) 08/26/18 Unknown [place] % (Auto) 8.6 % (0.0-7.3) H 08/26/18 Unknown Eos % (Auto) 6.3 % (0.0-4.3) H 08/26/18 Unknown Baso % (Auto) 1.2 % (0.0-1.8) 08/26/18 Unknown Lymph # 1.7 K/mm3 (1.2-5.4) 08/26/18 Unknown [place] # 0.5 K/mm3 (0.0-0.8) 08/26/18 Unknown Eos # 0.3 K/mm3 (0.0-0.4) 08/26/18 Unknown Baso # 0.1 K/mm3 (0.0-0.1) 08/26/18 Unknown Seg Neutrophils % 50.9 % (40.0-70.0) 08/26/18 Unknown Seg Neutrophils # 2.7 K/mm3 (1.8-7.7) 08/26/18 Unknown PT 12.9 Sec. (12.2-14.9) 08/26/18 Unknown INR 0.92 (0.87-1.13) 08/26/18 Unknown APTT 27.7 Sec. (24.2-36.6) 08/26/18 Unknown 158.82 ng/mlDDU (0-234) 08/26/18 Unknown Sodium 141 mmol/L (137-145) 08/26/18 Unknown Potassium 4.0 mmol/L (3.6-5.0) 08/26/18 Unknown Chloride 101.2 mmol/L (98-107) 08/26/18 Unknown Carbon Dioxide 22 mmol/L (22-30) 08/26/18 Unknown 22 mmol/L 08/26/18 Unknown BUN 13 mg/dL (9-20) 08/26/18 Unknown 0.8 mg/dL (0.8-1.5) 08/26/18 Unknown Estimated GFR > 60 ml/min 08/26/18 Unknown 16 % 08/26/18 Unknown Glucose 125 mg/dL (75-100) H 08/26/18 Unknown 5.3 % (4-6) 08/26/18 Unknown Calcium 8.3 mg/dL (8.4-10.2) L 08/26/18 Unknown 0.40 mg/dL (0.1-1.2) 08/26/18 Unknown AST 44 units/L (5-40) H 08/26/18 Unknown ALT 47 units/L (7-56) 08/26/18 Unknown 113 units/L (35-129) 08/26/18 Unknown < 0.010 ng/mL (0.00-0.029) 08/26/18 Unknown 7.1 g/dL (6.3-8.2) 08/26/18 Unknown 4.4 g/dL (3.9-5) 08/26/18 Unknown 1.6 % 08/26/18 Unknown 36 units/L (13-60) 08/26/18 Unknown Active Medications - Current Medications Current Medications: Generic Name Dose Route Start Last Admin Trade Name Freq PRN Reason Stop Dose Admin Acetaminophen 650 mg 08/26/18 16:25 Tylenol PO Q4H PRN Pain MILD(1-3)/Fever >100.5/WERNER Enoxaparin Sodium 40 mg 08/26/18 22:00 08/26/18 22:13 Lovenox SUB-Q 40 mg QDAY@2200 CHANDANA Administration Famotidine 20 mg 08/26/18 17:00 08/26/18 18:15 Pepcid PO 20 mg QDAY CHANDANA Administration Hydromorphone HCl 0.5 mg 08/26/18 16:25 08/26/18 19:56 Dilaudid IV 0.5 mg Q3H PRN Administration Pain , Severe (7-10) Sodium Chloride 1,000 mls @ 75 mls/hr 08/26/18 17:00 08/26/18 18:59 Nacl 0.9% 1000 Ml IV 75 mls/hr DIRECT CHANDANA Administration Multivitamins/Minerals 1 each 08/26/18 17:00 08/26/18 18:15 Caltrate Plus PO 1 each QDAY CHANDANA Administration Nicotine 14 mg 08/26/18 17:00 08/26/18 18:18 Habitrol TD 14 mg QDAY CHANDANA Administration Ondansetron HCl 4 mg 08/26/18 16:25 Zofran IV Q8H PRN Nausea And Vomiting Oxycodone/Acetaminophen 1 tab 08/26/18 16:25 08/27/18 06:37 Percocet 5/325 PO 1 tab Q6H PRN Administration Pain, Moderate (4-6) Sodium Chloride 10 ml 08/26/18 22:00 08/26/18 22:13 Sodium Chloride Flush Syringe 10 Ml IV 10 ml BID CHANDANA Administration Sodium Chloride 10 ml 08/26/18 16:25 Sodium Chloride Flush Syringe 10 Ml IV PRN PRN LINE FLUSH
[2018-08-27 08:17] LABS: Basophils # (Auto) 0.1 K/mm3 (0.0-0.1); Basophils % (Auto) 0.7 % (0.0-1.8); Eosinophils # (Auto) 0.3 K/mm3 (0.0-0.4); Eosinophils % (Auto) 3.2 % (0.0-4.3); Hematocrit 43.6 % (35.5-45.6); Hemoglobin 15.3 gm/dl (11.8-15.2); Lymphocytes # (Auto) 2.1 K/mm3 (1.2-5.4); Lymphocytes % (Auto) 22.5 % (13.4-35.0); Mean Corpuscular HGB Conc 35 % (32-34); Mean Corpuscular Volume 98 fl (84-94); Monocytes # (Auto) 0.8 K/mm3 (0.0-0.8); Monocytes % (Auto) 8.3 % (0.0-7.3); Platelet Count 187 K/mm3 (140-440); Red Blood Count 4.44 M/mm3 (3.65-5.03); Red Cell Distribution Width 13.2 % (13.2-15.2)
[2018-08-27 08:35] LABS: Alanine Aminotransferase 32 units/L (7-56); Albumin 3.6 g/dL (3.9-5); BUN/Creatinine Ratio 15; Blood Urea Nitrogen 12 mg/dL (9-20); Calcium 8.1 mg/dL (8.4-10.2); Hemolysis Index 6
[2018-08-27] MEDS: CALTRATE PLUS PO SCH (09:38)
[2018-08-27] MEDS: PEPCID PO SCH (09:38)
[2018-08-27] MEDS: SODIUM CHLORIDE FLUSH SYRINGE 10 ML IV SCH ×2 (09:39→21:02)
[2018-08-27] MEDS: HABITROL TD SCH (09:39)
[2018-08-27] MEDS: NACL 0.9% 1000 ML 1,000 ML IV SCH ×2 (09:43→21:02)
[2018-08-27] MEDS: LOVENOX SUB-Q SCH (21:02)
[2018-08-28] MEDS ORDERED: ROBITUSSIN PO PRN (09:35)
[2018-08-28] MEDS ORDERED: LEXISCAN IV ONE ×2 (10:00→10:17)
[2018-08-28] MEDS ORDERED: FLONASE NS SCH (10:00)
[2018-08-28] MEDS: CALTRATE PLUS PO SCH (12:11)
[2018-08-28] MEDS: HABITROL TD SCH (12:12)
[2018-08-28] MEDS: PEPCID PO SCH (12:12)
[2018-08-28] MEDS: SODIUM CHLORIDE FLUSH SYRINGE 10 ML IV SCH (12:12)
[2018-08-28 12:15] VITALS: BP 153/87
--- NOTE | 2018-08-28 12:51 | Discharge Summary ---
Providers - Providers Date of Admission: 08/26/18 14:34 Date of discharge: 08/28/18 Attending physician: JEZ POE [facility] Condition: Stable Hospital course: Patient is a 53 yo man with a history of hypertension and tobacco dependency who presented with chest pains. Troponin T negative x 2, normal d-dimer, elevated HCT, bg 125, isolated increase AST 44 with normal ALT/AP/TB. Waiting on Stress test on Tuesday Chest pains, atypical most likely GERD related: stress test negative Elevated HCT, due to dehydration: labs pending Tobacco dependency: child guidance counselor on stopping Obesity, bmi 32.5: child guidance counselor on weight reduction Isolated AST, very mild and insignificant for workup at this time: monitor outpatient DVT prophylaxis: sq lovenox full code Disposition: - TO HOME OR SELFCARE Time spent for discharge: 36 minutes Core Measure Documentation - Palliative Care Palliative Care/ Comfort Measures: Not Applicable - Core Measures Any of the following diagnoses?: none - VTE Discharge Requirements Deep Vein Thrombosis/Pulmonary Embolism Present on Admission: No Has pt received <5 days of overlap therapy or INR<2.0: No Anticoagulant overlap therapy prescribed at discharge: No Contraindication No Overlap Therapy order at DC: Not Indicated Exam - Physical Exam Narrative exam: Gen: WDWN, NAD, Awake, Alert, Orientated HEENT: NCAT, EOMI, PERRL, OP Clear Neck: supple, no adenopathy, no thyromegaly, no JVD CVS/Heart: RRR, normal S1S2, pulses present bilaterally Chest/Lungs: CTA B, Symmetrical chest expansion, good air entry bilaterally GI/Abdomen: soft, NTND, good bowel sounds, no guarding or rebound /Bladder: no suprapubic tenderness, no CVA or paraspinal tenderness Extermity/Skin: no c/c/e, no obvious rash MSK: FROM x 4 Neuro: CN 2-12 grossly intact, no new focal deficits Psych: calm - Constitutional Vitals: Temp Pulse Resp BP Pulse Ox 98.0 F 72 18 153/87 96 08/28/18 12:04 08/28/18 09:58 08/28/18 12:04 08/28/18 12:04 08/28/18 04:01 Plan Activity: other (no strenous activity unless cleared by PCP) Diet: regular Follow up with: KARINA ORDOÑEZ MD [Primary Care Provider] - 3-5 Days Prescriptions: Fluticasone [Flonase] 100 mcg NS QDAY #1 bottle Nicotine [Habitrol] 14 mg TD QDAY #15 patch oxyCODONE /ACETAMINOPHEN [Percocet 5/325 mg] 1 tab PO Q6H PRN #15 tablet PRN Reason: Pain , Severe (7-10) Pantoprazole [Protonix] 40 mg PO QDAY #14 tablet guaiFENesin [Robitussin] 200 mg PO Q4H PRN #30 oral.liqd PRN Reason: Cough
--- NOTE | 2018-08-29 01:18 | Treadmill Report ---
NUCLEAR PERFUSION STUDY REASON FOR STUDY: Chest pain. IMAGING PROTOCOL: The patient received 10 mCi of Technetium 99m Tetrofosmin for resting image and 28 mCi of Technetium 99m Tetrofosmin for stress imaging. The imaging for the whole procedure was completed 30-90 minutes following the initial injection of Technetium 99m Tetrofosmin. The SPECT imaging in the 180 degree arc was performed in the right anterior oblique projection. Computerized reconstruction of the images was performed for analysis. IMAGING RESULTS: Normal cavity size from stress to rest. Normal distribution of radionuclide in the anterior, inferior, septal, and apical regions. Gated SPECT, EF 64% with no wall motion abnormality. The patient infused Lexiscan with no EKG changes. SUMMARY: 1. Negative Lexiscan EKG. 2. Normal rest and stress myocardial perfusion scan. No significant ischemia. No wall motion abnormality. Gated SPECT, EF 64%. JOB# [id number] NOE/TAHIR
== END 2018-08-28 14:22 | disposition home or self-care (01) | DRG 392 ==
LOC: ED 09:32 → 4A 14:34
PROVIDERS: ADMIT Internal Medicine; ATTEND Internal Medicine
DX: K21.9 Gastro-esophageal reflux disease without esophagitis (principal); I10 Essential (primary) hypertension; F17.210 Nicotine dependence, cigarettes, uncomplicated; D75.1 Secondary polycythemia; E83.51 Hypocalcemia; R74.0 Nonspecific elevation of levels of transaminase and lactic acid dehydrogenase [LDH]; E66.9 Obesity, unspecified; Z71.6 Tobacco abuse counseling; Z68.32 Body mass index [BMI] 32.0-32.9, adult
CPT/HCPCS: 36415; 71045; 78452; 80053; 83036; 83690; 84484; 85025; 85379; 85610; 85730; 93005; 93010; 93017; 96374; 99406; G0378; A9502; J1170; J1650; J2270; J2785; J7030

== ENCOUNTER 2019-01-22 17:30 | Emergency (ER) | payer SELFPAY ==
[2019-01-22 18:33] VITALS: BP 181/109
--- NOTE | 2019-01-22 18:33 | Emergency Department Report ---
Blank Doc - Documentation Documentation: 53-year-old male that presents with right hand pain. This initial assessment/diagnostic orders/clinical plan/treatment(s) is/are subject to change based on patient's health status, clinical progression and re- assessment by fellow clinical providers in the ED. Further treatment and workup at subsequent clinical providers discretion. Patient/guardians urged not to elope from the ED as their condition may be serious if not clinically assessed and managed. Initial orders include: 1- Patient sent to [facility] for further evaluation and treatment 2- xrays
--- NOTE | 2019-01-22 19:42 | XRay Report ---
RIGHT HAND 3 VIEWS. INDICATION / CLINICAL INFORMATION: hand pain COMPARISON: None available. FINDINGS: BONES / JOINT(S): Evaluation is limited by the patient's inability to fully extend fingers. No fractu res identified. Spurring is present posteriorly on the lateral view at the level the metacarpal heads . This was present on the previous exam. SOFT TISSUES: No significant abnormality. ADDITIONAL FINDINGS: None. Signer Name: Adis Nelson MD Signed: 01/22/2019 7:38 PM Workstation Name: [id number]
[2019-01-22] MEDS ORDERED: HYDROcodone/ACETAMINOPHEN 5-325 MG TAB PO STA (20:59)
== END 2019-01-22 22:01 | disposition home or self-care (01) ==
LOC: ED 17:30
DX: M79.641 Pain in right hand (principal); Z53.21 Procedure and treatment not carried out due to patient leaving prior to being seen by health care provider

== ENCOUNTER 2019-11-16 20:53 | Emergency (ER) | payer SELFPAY ==
[2019-11-16 21:49] LABS: Basophils # (Auto) 0.1 K/mm3 (0.0-0.1); Basophils % (Auto) 1.3 % (0.0-1.8); Eosinophils # (Auto) 0.1 K/mm3 (0.0-0.4); Eosinophils % (Auto) 1.4 % (0.0-4.3); Hematocrit 43.3 % (35.5-45.6); Hemoglobin 15.2 gm/dl (11.8-15.2); Lymphocytes # (Auto) 1.4 K/mm3 (1.2-5.4); Lymphocytes % (Auto) 14.2 % (13.4-35.0); Mean Corpuscular HGB Conc 35 % (32-34); Mean Corpuscular Volume 102 fl (84-94); Monocytes # (Auto) 1.3 K/mm3 (0.0-0.8); Monocytes % (Auto) 13.1 % (0.0-7.3); Platelet Count 195 K/mm3 (140-440); Red Blood Count 4.25 M/mm3 (3.65-5.03); Red Cell Distribution Width 13.3 % (13.2-15.2)
--- NOTE | 2019-11-16 22:00 | XRay Report ---
CHEST 1 VIEW INDICATION / CLINICAL INFORMATION: Chest Pain. COMPARISON: 08/26/2018 FINDINGS: SUPPORT DEVICES: None. HEART / MEDIASTINUM: No significant abnormality. LUNGS / PLEURA: No significant pulmonary or pleural abnormality. No pneumothorax. ADDITIONAL FINDINGS: No significant additional findings. IMPRESSION: 1. No acute findings. No significant interval change. Signer Name: Santos Dueñas MD Signed: 11/16/2019 9:55 PM Workstation Name: [id number]
[2019-11-16 22:10] LABS: BUN/Creatinine Ratio 9; Blood Urea Nitrogen 7 mg/dL (9-20); Calcium 8.8 mg/dL (8.4-10.2); Hemolysis Index 12
[2019-11-17] MEDS ORDERED: HYDROcodone/ACETAMINOPHEN 5-325 MG TAB PO ONE (03:43)
--- NOTE | 2019-11-17 04:27 | XRay Report ---
LEFT FOOT, 3 VIEWS INDICATION / CLINICAL INFORMATION: foot pain and swelling. COMPARISON: None available. FINDINGS: No fracture or dislocation. There is a small plantar calcaneal spur noted. Incidentally noted is osse ous connection between the third and fourth metatarsal, most likely either congenital or posttraumati c in etiology. IMPRESSION: No acute osseous or soft tissue abnormality. Signer Name: Tonya Adames MD Signed: 11/17/2019 4:22 AM Workstation Name: [email or web address]
--- NOTE | 2019-11-17 04:51 | Emergency Department Report ---
ED General Adult HPI - General Chief complaint: Chest Pain Stated complaint: LEFT LEG PAIN Time Seen by Provider: 11/17/19 03:18 Source: patient Mode of arrival: Wheelchair Limitations: No Limitations - History of Present Illness Initial comments: Patient is a 54-year-old white male who presents for left foot pain history of osteo-arthritis for same. States 5/10 foot pain. Has been no fall injury or trauma there is no abrasion laceration or bleeding there is no deformity. Patient advises pain is exacerbated by weightbearing. Pain is relieved by o ffloading. Patient states he has not seen his primary care doctor in the past 2 to 3 months has no pain medication. Cannot recall previous medications. Via [facility] aware, pt is a/o x 3, with nad distress, pt does endorest hsi fo intermittent Onset/Timin -: month(s) Location: lower extremity (left foot generalized ) Severity scale (0 -10): 4 Quality: aching Consistency: constant Improves with: none Worsens with: movement Associated Symptoms: denies: cough, diaphoresis, fever/chills, headaches, loss of appetite, malaise, nausea/vomiting - Related Data Previous Rx's Medication Instructions Recorded Last Taken Type Acetaminophen [Acetaminophen TAB] 325 mg PO Q4H PRN #15 tablet 08/28/18 Unknown Rx Fluticasone [Flonase] 100 mcg NS QDAY #1 bottle 08/28/18 Unknown Rx Nicotine [Habitrol] 14 mg TD QDAY #15 patch 08/28/18 Unknown Rx Pantoprazole [Protonix] 40 mg PO QDAY #14 tablet 08/28/18 Unknown Rx guaiFENesin [Robitussin] 200 mg PO Q4H PRN #30 oral.liqd 08/28/18 Unknown Rx oxyCODONE /ACETAMINOPHEN [Percocet 1 tab PO Q6H PRN #15 tablet 08/28/18 Unknown Rx 5/325 mg] Ketorolac [Toradol] 10 mg PO Q6H PRN #10 tablet 01/22/19 Unknown Rx Colchicine 0.6 mg PO Q8H #15 capsule 09/12/19 Unknown Rx Indomethacin 50 mg PO Q8H PRN #30 capsule 09/12/19 Unknown Rx predniSONE [Deltasone] 60 mg PO QDAY #15 tab 09/12/19 Unknown Rx traMADoL [Ultram] 50 mg PO Q6HR PRN #12 tablet 09/12/19 Unknown Rx traMADoL [Ultram] 50 mg PO Q6HR PRN #12 tablet 11/17/19 Unknown Rx Allergies Allergy/AdvReac Type Severity Reaction Status Date / Time No Known Allergies Allergy Verified 09/12/19 17:41 ED Review of Systems ROS: Stated complaint: LEFT LEG PAIN Other details as noted in HPI Constitutional: denies: chills, fever Eyes: denies: eye pain, eye discharge, vision change ENT: denies: ear pain, throat pain Respiratory: denies: cough, shortness of breath, wheezing Cardiovascular: denies: chest pain, palpitations Endocrine: no symptoms reported Gastrointestinal: denies: abdominal pain, nausea, vomiting, diarrhea Genitourinary: denies: urgency, dysuria Musculoskeletal: joint swelling, arthralgia (left daruke o ), myalgia. denies: back pain Skin: denies: rash, lesions Neurological: denies: headache, weakness, paresthesias Psychiatric: denies: anxiety, depression Hematological/Lymphatic: denies: easy bleeding, easy bruising ED Past Medical Hx - Past Medical History Previous Medical History?: Yes Hx Hypertension: Yes Hx CVA: No Hx Heart Attack/AMI: No Hx Congestive Heart Failure: No Hx Diabetes: No Hx Asthma: No Hx COPD: No - Surgical History Past Surgical History?: Yes Hx Cholecystectomy: Yes Additional Surgical History: osteomyelitis in toes on r foot in 07/2012 - Social History Smoking Status: Current Every Day Smoker Substance Use Type: None - Medications Home Medications: Home Medications Medication Instructions Recorded Confirmed Last Taken Type Acetaminophen [Acetaminophen TAB] 325 mg PO Q4H PRN #15 tablet 08/28/18 Unknown Rx Fluticasone [Flonase] 100 mcg NS QDAY #1 bottle 08/28/18 Unknown Rx Nicotine [Habitrol] 14 mg TD QDAY #15 patch 08/28/18 Unknown Rx Pantoprazole [Protonix] 40 mg PO QDAY #14 tablet 08/28/18 Unknown Rx guaiFENesin [Robitussin] 200 mg PO Q4H PRN #30 oral.liqd 08/28/18 Unknown Rx oxyCODONE /ACETAMINOPHEN [Percocet 1 tab PO Q6H PRN #15 tablet 08/28/18 Unknown Rx 5/325 mg] Ketorolac [Toradol] 10 mg PO Q6H PRN #10 tablet 01/22/19 Unknown Rx Colchicine 0.6 mg PO Q8H #15 capsule 09/12/19 Unknown Rx Indomethacin 50 mg PO Q8H PRN #30 capsule 09/12/19 Unknown Rx predniSONE [Deltasone] 60 mg PO QDAY #15 tab 09/12/19 Unknown Rx traMADoL [Ultram] 50 mg PO Q6HR PRN #12 tablet 09/12/19 Unknown Rx traMADoL [Ultram] 50 mg PO Q6HR PRN #12 tablet 11/17/19 Unknown Rx ED Physical Exam - General Limitations: No Limitations General appearance: alert, in no apparent distress - Head Head exam: Present: atraumatic, normocephalic - Eye Eye exam: Present: normal appearance - ENT ENT exam: Present: mucous membranes moist - Neck Neck exam: Present: normal inspection, full ROM, lymphadenopathy - Respiratory Respiratory exam: Present: normal lung sounds bilaterally. Absent: respiratory distress, wheezes, stridor, chest wall tenderness - Cardiovascular Cardiovascular Exam: Present: regular rate, normal rhythm, normal heart sounds. Absent: systolic murmur, diastolic murmur, rubs, gallop - GI/Abdominal GI/Abdominal exam: Present: soft, normal bowel sounds. Absent: distended, tenderness, guarding, rebound, rigid, bruit, hernia - Rectal Rectal exam: Present: deferred - Extremities Exam Extremities exam: Present: normal inspection - Back Exam Back exam: Present: normal inspection, full ROM. Absent: tenderness, CVA tenderness (R), CVA tenderness (L) - Neurological Exam Neurological exam: Present: alert, oriented X3, CN II-XII intact, normal gait, reflexes normal - Psychiatric Psychiatric exam: Present: normal affect - Skin Skin exam: Present: warm, dry, intact, normal color, erythema (left dorsal foot , erythema, swelling ). Absent: rash ED Course Vital Signs 11/16/19 21:18 Temperature 98.1 F Pulse Rate 75 Respiratory 18 Rate Blood Pressure 182/91 O2 Sat by Pulse 98 Oximetry ED Medical Decision Making - Lab Data Result diagrams: 11/16/19 21:28 11/16/19 21:28 - EKG Data EKG shows normal: sinus rhythm, axis, intervals, QRS complexes, ST-T waves Rate: normal - EKG Data When compared to previous EKG there are: no significant change Interpretation: no acute changes, nonspecific ST-T wave akosua, other - Radiology Data Radiology results: report reviewed, image reviewed Findings Reporting MD: Santos Dueñas Dictation Time: November 16, 2019 20:55 Director Software Development: Not available Director Of Collections Date: CHEST 1 VIEW INDICATION / CLINICAL INFORMATION: Chest Pain. COMPARISON: 08/26/2018 FINDINGS: SUPPORT DEVICES: None. HEART / MEDIASTINUM: No significant abnormality. LUNGS / PLEURA: No significant pulmonary or pleural abnormality. No pneumothorax. ADDITIONAL FINDINGS: No significant additional findings. IMPRESSION: 1. No acute findings. No significant interval change. Signer Name: Santos Dueñas MD Signed: 11/16/2019 8:55 PM Workstation Name: [id number] Findings Reporting MD: Tonya Adames Dictation Time: November 17, 2019 03:22 Director Software Development: Not available Director Of Collections Date: LEFT FOOT, 3 VIEWS INDICATION / CLINICAL INFORMATION: foot pain and swelling. COMPARISON: None available. FINDINGS: No fracture or dislocation. There is a small plantar calcaneal spur noted. Incidentally noted is osseous connection between the third and fourth metatarsal, most likely either congenital or posttraumatic in etiology. IMPRESSION: No acute osseous or soft tissue abnormality. Signer Name: Tonya Adames MD Signed: 11/17/2019 3:22 AM Workstation Name: [id number] - Medical Decision Making Heart score is 0 troponin less than 0.012 chest x-ray is normal no infiltrate no opacities EKG nonspecific ST changes rhythm is normal [place] interval is normal QRS is normal EKG interpreted by ED attending no ST elevated NC. Labs noted normal foot x-ray no fracture no soft tissue abnormality noted on x-ray x-ray mild to moderate foot swelling there is mild erythema will treat with NSAIDs PRN pain patient directed for foot care he does not have diabetes however. Will follow-up with primary care doctor in 2 to 3 days. , Patient verbalized agreement and understanding of discharge plan will be DC'd home in stable condition at this time Critical care attestation.: If time is entered above; I have spent that time in minutes in the direct care of this critically ill patient, excluding procedure time. ED Disposition Clinical Impression: Arthralgia Qualifiers: Joint pain location: foot Laterality: left Qualified Code(s): M25.572 - Pain in left ankle and joints of left foot Chest pain Qualifiers: Chest pain type: unspecified Qualified Code(s): R07.9 - Chest pain, unspecified Disposition: TO HOME OR SELFCARE Is pt being admited?: No Does the pt Need Aspirin: No Condition: Stable Instructions: Chest Pain (ED), Osteoarthritis (ED) Prescriptions: traMADoL [Ultram] 50 mg PO Q6HR PRN #12 tablet PRN Reason: Pain Referrals: JACLYN KEMP II, MD [Referring] - 3-5 Days Time of Disposition: 05:04
[2019-11-17] MEDS ORDERED: IBUPROFEN 800 MG TAB PO ONE (05:19)
[2019-11-17] MEDS ORDERED: IBUPROFEN 800 MG TAB ONE (05:21)
[2019-11-17 06:30] VITALS: BP 152/90
== END 2019-11-17 06:19 | disposition home or self-care (01) ==
LOC: ED 20:53
DX: M25.572 Pain in left ankle and joints of left foot (principal); R07.89 Other chest pain; I10 Essential (primary) hypertension; F17.200 Nicotine dependence, unspecified, uncomplicated; Z90.49 Acquired absence of other specified parts of digestive tract; Z79.899 Other long term (current) drug therapy
CPT/HCPCS: 36415; 71045; 80048; 84484; 85025; 93005

== ENCOUNTER 2021-03-02 13:05 | Emergency (ER) | payer SELFPAY ==
[2021-03-02 13:55] VITALS: BP 176/77
[2021-03-02] MEDS ORDERED: oxyCODONE /ACETAMINOPHEN 5-325MG TAB PO ONE (14:07)
--- NOTE | 2021-03-02 15:17 | XRay Report ---
RIGHT ANKLE 3 VIEWS INDICATION: right ankle pain/foot swelling. COMPARISON: None. IMPRESSION: There is moderate diffuse soft tissue swelling or edema. No acute osseous abnormality o r bone lesion is identified. No significant arthritic changes. RIGHT FOOT 3 VIEWS INDICATION: right ankle pain/foot swelling. COMPARISON: None. IMPRESSION: There is mild diffuse soft tissue swelling or edema. Mild osteoarthritic changes are no ashly in the midfoot. No erosive joint pathology. Large plantar spur. No acute osseous abnormality or b one lesion is identified. Signer Name: Fantasma Hirsch Jr, MD Signed: 03/02/2021 3:11 PM Workstation Name: [id number]
[2021-03-02 15:39] LABS: Basophils # (Auto) 0.1 K/mm3 (0.0-0.1); Basophils % (Auto) 0.7 % (0.0-1.8); Eosinophils # (Auto) 0.1 K/mm3 (0.0-0.4); Hemoglobin 14.2 gm/dl (11.8-15.2); Lymphocytes # (Auto) 1.4 K/mm3 (1.2-5.4); Lymphocytes % (Auto) 16.4 % (13.4-35.0); Mean Corpuscular HGB Conc 33 % (32-34); Mean Corpuscular Volume 98 fl (84-94); Monocytes % (Auto) 11.6 % (0.0-7.3); Platelet Count 200 K/mm3 (140-440); Red Blood Count 4.38 M/mm3 (3.65-5.03); Red Cell Distribution Width 12.8 % (13.2-15.2)
--- NOTE | 2021-03-02 15:46 | Emergency Department Report ---
ED Lower Extremity HPI - General Chief Complaint: Extremity Injury, Lower Stated Complaint: VERY BAD PAIN IN FOOT Time Seen by Provider: 03/02/21 14:03 Source: patient Mode of arrival: Ambulatory Limitations: No Limitations - History of Present Illness Initial Comments: Patient is a 55-year-old male presents emergency room with complaints of right ankle pain and swelling that began 2 days ago. Patient states 3 days ago he was coming down from a ladder and tripped over something at the end of the ladder and states he twisted his ankle. He states it was not causing him a lot of problems at that time but the next morning when he woke up he was having pain and swelling. He states he has not been ambulatory secondary to pain with ambulation. Patient states that he has a history of osteomyelitis in this leg. He denies any fever, chills, vomiting, numbness, weakness. No allergies to medications. - Related Data Previous Rx's Medication Instructions Recorded Last Taken Type Acetaminophen [Acetaminophen TAB] 325 mg PO Q4H PRN #15 tablet 08/28/18 Unknown Rx Fluticasone [Flonase] 100 mcg NS QDAY #1 bottle 08/28/18 Unknown Rx Nicotine [Habitrol] 14 mg TD QDAY #15 patch 08/28/18 Unknown Rx Pantoprazole [Protonix] 40 mg PO QDAY #14 tablet 08/28/18 Unknown Rx guaiFENesin [Robitussin] 200 mg PO Q4H PRN #30 oral.liqd 08/28/18 Unknown Rx oxyCODONE /ACETAMINOPHEN [Percocet 1 tab PO Q6H PRN #15 tablet 08/28/18 Unknown Rx 5/325 mg] Ketorolac [Toradol] 10 mg PO Q6H PRN #10 tablet 01/22/19 Unknown Rx Colchicine 0.6 mg PO Q8H #15 capsule 09/12/19 Unknown Rx Indomethacin 50 mg PO Q8H PRN #30 capsule 09/12/19 Unknown Rx predniSONE [Deltasone] 60 mg PO QDAY #15 tab 09/12/19 Unknown Rx traMADoL [Ultram] 50 mg PO Q6HR PRN #12 tablet 09/12/19 Unknown Rx traMADoL [Ultram] 50 mg PO Q6HR PRN #12 tablet 11/17/19 Unknown Rx Clindamycin [Clindamycin CAP] 300 mg PO Q6H #28 capsule 11/20/19 Unknown Rx Prednisone [predniSONE 10 mg 10 mg PO .TAPER #1 tab.ds.pk 11/20/19 Unknown Rx (6-Day Pack, 21 Tabs)] Indomethacin 50 mg PO TID #21 capsule 03/02/21 Unknown Rx Sulfamethoxazole/Trimethoprim 1 each PO BID 7 Days #14 tablet 03/02/21 Unknown Rx [Bactrim DS TAB] traMADoL [Ultram 50 MG tab] 50 mg PO Q6HR PRN #12 tablet 03/02/21 Unknown Rx Allergies Allergy/AdvReac Type Severity Reaction Status Date / Time No Known Allergies Allergy Verified 11/20/19 02:24 ED Review of Systems ROS: Stated complaint: VERY BAD PAIN IN FOOT Other details as noted in HPI Comment: All other systems reviewed and negative ED Past Medical Hx - Past Medical History Hx Hypertension: Yes Hx CVA: No Hx Heart Attack/AMI: No Hx Congestive Heart Failure: No Hx Diabetes: No Hx Asthma: No Hx COPD: No - Surgical History Hx Cholecystectomy: Yes Additional Surgical History: osteomyelitis in toes on r foot in 07/2012 - Social History Smoking Status: Current Every Day Smoker Substance Use Type: None - Medications Home Medications: Home Medications Medication Instructions Recorded Confirmed Last Taken Type Acetaminophen [Acetaminophen TAB] 325 mg PO Q4H PRN #15 tablet 08/28/18 Unknown Rx Fluticasone [Flonase] 100 mcg NS QDAY #1 bottle 08/28/18 Unknown Rx Nicotine [Habitrol] 14 mg TD QDAY #15 patch 08/28/18 Unknown Rx Pantoprazole [Protonix] 40 mg PO QDAY #14 tablet 08/28/18 Unknown Rx guaiFENesin [Robitussin] 200 mg PO Q4H PRN #30 oral.liqd 08/28/18 Unknown Rx oxyCODONE /ACETAMINOPHEN [Percocet 1 tab PO Q6H PRN #15 tablet 08/28/18 Unknown Rx 5/325 mg] Ketorolac [Toradol] 10 mg PO Q6H PRN #10 tablet 01/22/19 Unknown Rx Colchicine 0.6 mg PO Q8H #15 capsule 09/12/19 Unknown Rx Indomethacin 50 mg PO Q8H PRN #30 capsule 09/12/19 Unknown Rx predniSONE [Deltasone] 60 mg PO QDAY #15 tab 06/10/20 Unknown Rx traMADoL [Ultram] 50 mg PO Q6HR PRN #12 tablet 09/12/19 Unknown Rx traMADoL [Ultram] 50 mg PO Q6HR PRN #12 tablet 11/17/19 Unknown Rx Clindamycin [Clindamycin CAP] 300 mg PO Q6H #28 capsule 11/20/19 Unknown Rx Prednisone [predniSONE 10 mg 10 mg PO .TAPER #1 tab.ds.pk 11/20/19 Unknown Rx (6-Day Pack, 21 Tabs)] Indomethacin 50 mg PO TID #21 capsule 03/02/21 Unknown Rx Sulfamethoxazole/Trimethoprim 1 each PO BID 7 Days #14 tablet 03/02/21 Unknown Rx [Bactrim DS TAB] traMADoL [Ultram 50 MG tab] 50 mg PO Q6HR PRN #12 tablet 03/02/21 Unknown Rx ED Physical Exam - General Limitations: No Limitations General appearance: alert, in no apparent distress - Head Head exam: Present: atraumatic, normocephalic - Eye Eye exam: Present: normal appearance - ENT ENT exam: Present: mucous membranes moist - Extremities Exam Extremities exam: Present: other (ttp and edema present to the right ankle and foot, mild erythema and increased warmth, no rashes, FROM, neurovascularly intact) - Neurological Exam Neurological exam: Present: alert, oriented X3 - Psychiatric Psychiatric exam: Present: normal affect, normal mood - Skin Skin exam: Present: warm, dry ED Course Vital Signs 03/02/21 03/02/21 13:41 14:44 Temperature 97.7 F Pulse Rate 81 Respiratory 20 16 Rate Blood Pressure 176/77 O2 Sat by Pulse 95 Oximetry ED Lower Extremity MDM - Lab Data Result diagrams: 03/02/21 15:09 03/02/21 15:09 Lab Results 03/02/21 03/02/21 Range/Units 15:09 15:09 WBC 8.4 (4.5-11.0) K/mm3 RBC 4.38 (3.65-5.03) M/mm3 Hgb 14.2 (11.8-15.2) gm/dl Hct 43.0 (35.5-45.6) % MCV 98 H (84-94) fl MCH 33 H (28-32) pg MCHC 33 (32-34) % RDW 12.8 L (13.2-15.2) % Plt Count 200 (140-440) K/mm3 Lymph % (Auto) 16.4 (13.4-35.0) % [place] % (Auto) 11.6 H (0.0-7.3) % Eos % (Auto) 1.0 (0.0-4.3) % Baso % (Auto) 0.7 (0.0-1.8) % Lymph # (Auto) 1.4 (1.2-5.4) K/mm3 [place] # (Auto) 1.0 H (0.0-0.8) K/mm3 Eos # (Auto) 0.1 (0.0-0.4) K/mm3 Baso # (Auto) 0.1 (0.0-0.1) K/mm3 Seg Neutrophils % 70.3 H (40.0-70.0) % Seg Neutrophils # 5.9 (1.8-7.7) K/mm3 Sodium 138 (137-145) mmol/L Potassium 3.7 (3.6-5.0) mmol/L Chloride 100.3 (98-107) mmol/L Carbon Dioxide 25 (22-30) mmol/L Anion Gap 16 mmol/L BUN 9 (9-20) mg/dL Creatinine 0.7 L (0.8-1.3) mg/dL Estimated GFR > 60 ml/min BUN/Creatinine Ratio 13 % Glucose 91 (75-100) mg/dL Uric Acid 6.8 (3.5-7.6) mg/dL Calcium 8.6 (8.4-10.2) mg/dL Total Bilirubin 0.80 (0.1-1.2) mg/dL AST 12 (5-40) units/L ALT 11 (7-56) units/L Alkaline Phosphatase 72 (35-129) units/L C-Reactive Protein 1.70 H (0.00-1.30) mg/dL Total Protein 7.3 (6.3-8.2) g/dL Albumin 3.9 (3.9-5) g/dL Albumin/Globulin Ratio 1.1 % - Radiology Data Radiology results: report reviewed Ordering Physician: JASON SAMUEL Date of Service: 03/02/21 Procedure(s): XR foot 3+V RT Accession Number(s): [id number] cc: JASON SAMUEL Fluoro Time In Minutes: RIGHT ANKLE 3 VIEWS INDICATION: right ankle pain/foot swelling. COMPARISON: None. IMPRESSION: There is moderate diffuse soft tissue swelling or edema. No acute osseous abnormality or bone lesion is identified. No significant arthritic changes. RIGHT FOOT 3 VIEWS INDICATION: right ankle pain/foot swelling. COMPARISON: None. IMPRESSION: There is mild diffuse soft tissue swelling or edema. Mild osteoarthritic changes are noted in the midfoot. No erosive joint pathology. Large plantar spur. No acute osseous abnormality or bone lesion is identified. Signer Name: Fantasma Hirsch Jr, MD Signed: 03/02/2021 3:11 PM Workstation Name: [id number] Transcribed By: TTR Dictated By: FANTASMA HIRSCH JR, MD Electronically Authenticated By: FANTASMA HIRSCH JR, MD Signed Date/Time: 03/02/211510 DD/ 09 TD/TT: - Medical Decision Making Patient is a 55-year-old male presents emergency room with complaints of right ankle pain and swelling that began 2 days ago. Patient states 3 days ago he was coming down from a ladder and tripped over something at the end of the ladder and states he twisted his ankle. He states it was not causing him a lot of problems at that time but the next morning when he woke up he was having pain and swelling. He states he has not been ambulatory secondary to pain with ambulation. Patient states that he has a history of osteomyelitis in this leg. He denies any fever, chills, vomiting, numbness, weakness. No allergies to medications. Vitals are stable. On exam ttp and edema present to the right ankle and foot, mild erythema and increased warmth, no rashes, FROM, neurovascularly intact. Patient has no fever, no tachycardia, no leukocytosis. Symptoms and examination could be related to gouty arthropathy versus cellulitis. Patient has full range of motion, no signs of septic joint at this time. XR right foot: There is mild diffuse soft tissue swelling or edema. Mild osteoarthritic changes are noted in the midfoot. No erosive joint pathology. Large plantar spur. No acute osseous abnormality or bone lesion is identified. XR right ankle: IMPRESSION: There is moderate diffuse soft tissue swelling or edema. No acute osseous abnormality or bone lesion is identified. No significant arthritic changes. advised pt Please take medication as prescribed. Follow-up with a primary care doctor. follow up with an orthopedic doctor. Return to emergency room for any new or worsening symptoms. Critical care attestation.: If time is entered above; I have spent that time in minutes in the direct care of this critically ill patient, excluding procedure time. ED Disposition Clinical Impression: Right ankle pain Qualifiers: Chronicity: acute Qualified Code(s): M25.571 - Pain in right ankle and joints of right foot Ankle swelling Qualifiers: Laterality: right Qualified Code(s): M25.471 - Effusion, right ankle Disposition: 01 HOME / SELF CARE / HOMELESS Is pt being admited?: No Does the pt Need Aspirin: No Condition: Stable Instructions: Cellulitis, Adult, Arthritis Additional Instructions: Please take medication as prescribed. Follow-up with a primary care doctor. follow up with an orthopedic doctor. Return to emergency room for any new or worsening symptoms. Prescriptions: Sulfamethoxazole/Trimethoprim [Bactrim DS TAB] 1 each PO BID 7 Days #14 tablet Indomethacin 50 mg PO TID #21 capsule traMADoL [Ultram 50 MG tab] 50 mg PO Q6HR PRN #12 tablet PRN Reason: pain Referrals: PRIMARY CAREMD [Primary Care Provider] - 2-3 Days LOLIS CAMARENA MD [Staff Physician] - 2-3 Days [facility] [Provider Group] - 2-3 Days Time of Disposition: 16:33 Print Language: NEPALI
[2021-03-02 16:10] LABS: Alanine Aminotransferase 11 units/L (7-56); Albumin 3.9 g/dL (3.9-5); Blood Urea Nitrogen 9 mg/dL (9-20); Calcium 8.6 mg/dL (8.4-10.2); Hemolysis Index 9; Uric Acid 6.8 mg/dL (3.5-7.6)
[2021-03-02 16:29] LABS: BUN/Creatinine Ratio 13
== END 2021-03-02 16:58 | disposition home or self-care (01) ==
LOC: ED 13:05
DX: M25.571 Pain in right ankle and joints of right foot (principal); M25.471 Effusion, right ankle; I10 Essential (primary) hypertension
CPT/HCPCS: 36415; 80053; 84550; 85025; 86140; 99283

== ENCOUNTER 2021-08-14 19:43 | Emergency (ER) | payer SELFPAY ==
[2021-08-14 20:11] VITALS: BP 185/93
== END 2021-08-15 02:20 | disposition left against medical advice (07) ==
LOC: ED 19:43
DX: R42 Dizziness and giddiness (principal); M79.602 Pain in left arm; Z53.21 Procedure and treatment not carried out due to patient leaving prior to being seen by health care provider
CPT/HCPCS: 93005